=== PATIENT | male | born 1955 | race Caucasian/White ===

== ENCOUNTER → 2019-09-24 | Outpatient (CLI) | payer MEDICARE, MEDICAID ==
[~2019-09-24] MED LIST: AMARYL4 MG PO; CEPHALEXIN500 M1 PO; COREG12.5 MG PO; DIFLUCAN 100MG100 MG PO; FIORICET 325 MG1 TA1 PO; GLUCOPHAGE1000 MG PO; HCTZ 25MG TAB25 MG PO; HYTRIN 1MG C1 MG/CAP PO; K-TAB10 PO; LANTUS100 U/ML SC; LEVAQUIN 5500 MG/TA1 PO; NAPROSYN500 MG PO; NORCO 325 MG-51 TAB PO; NORCO 325 MG-7.1 TAB PO; NORVASC2.5 MG PO; PERCOCET 325 MG1 TA2 PO; TRULICITY1.5 MG/0.5 SQ; ZESTRIL 10MG10 MG PO; ZESTRIL 20MG TA20 MG PO; ZOCOR 10MG10 MG PO; ZOFRAN ODT4 MG PO
== END ==
LOC: COL.RAD 09:17
DX: Z13.6 Encounter for screening for cardiovascular disorders (principal); F17.200 Nicotine dependence, unspecified, uncomplicated

== ENCOUNTER 2020-08-20 18:27 | Inpatient (IN) | payer MEDICARE, MEDICAID ==
[2020-08-20] VITALS (102 sets, daily range): O2SAT 92–98
[~2020-08-20] VITALS: Ht 177.8 cm; Wt 96.3 kg
[~2020-08-20 18:27] MED LIST changes: -HYTRIN 1MG C1 MG/CAP PO; +HYTRIN 2MG CAPSU2 MG PO
--- NOTE | 2020-08-20 18:50 | NUR ---
Received report from AMEYA Ramirez.
--- NOTE | 2020-08-20 18:56 | NUR ---
Patient arrives to ICU room 8 via EMS stretcher from [facility]. Patient is A&Ox4 and initial vitals are within normal limits. Patient denies any pain or discomfort, but reports feeling short of breath. He arrives on 2L oxygen via nasal cannula. Levophed is infusing to a RIJ triple lumen central line at double concentration (8mg/250mL) at 0.1 mcg/kg/min to the brown port. No other fluids infusing upon arrival. He also has an 18G peripheral line to the RAC and a 16Fr jewell in place. Lungs are clear in the upper lobes and diminished in the bases upon auscultation. Patient's breathing is unlabored, though slightly tachypneic at 24-28 breaths/minute. Breaths are shallow in depth. His right lower extremity is swollen and 1+ edematous, mid-calf and below. The patient has an ulcer to the lateral R foot that measures approximately 2cm by 3cm. The ulcer is oozing yellowish drainage, and is left open to air at this time. The right ankle has yellow blister-like lesions that are intact but also weeping. On the sole of the R foot is a small puncture-like abrasion. Patient's groin and scrotum are red and excoriated. No other skin issues noted. Patient's blood glucose is 41 at 1955 when initially checked after arrival. Dr. James notified, who is at the bedside. Received orders for hypoglycemic protocol and to initiate patient on ADA diet as tolerated. Patient continues to be alert and oriented; a sandwhich box and orange juice are provided. ACHS accuchecks are ordered to begin once blood glucose is stabilized. Dr. James requests to continue levophed drip, titrating for a MAP above 65. He states he does not need any labs drawn until tomorrow morning. Will continue to monitor.
[2020-08-21] VITALS (600 sets, daily range): BP systolic 75–133; BP diastolic 43–109; PULSE 70–86; TEMP 97.2–98.8; O2SAT 74–100
[2020-08-21 05:50] LABS: MEAN CELL VOLUME 87 fl (80.0-100.0); MEAN CORPUSCULAR HGB CONC 33 g/dl (33.0-37.0); MEAN PLATELET VOLUME 11.3 fl (7.4-10.4); PLATELET COUNT 249 K/mm3 (130-400); RED BLOOD COUNT 3.08 M/mm3 (4.20-5.60)
[2020-08-21 05:53] LABS: HEMATOCRIT 26.8 % (42.0-52.0); HEMOGLOBIN 8.9 g/dl (13.5-18.0); MEAN CORPUSCULAR HEMOGLOBIN 29 pg (27.0-31.0)
[2020-08-21 06:04] LABS: ALBUMIN 2.6 gm/dL (3.5-5.0); BILIRUBIN,TOTAL 2.6 mg/dL (0.0-1.0); CALCIUM 7.2 mg/dL (8.4-10.2); CREATININE, serum 5.07 (0.66-1.25); PHOSPHOROUS 7.1 mg/dL (2.5-4.5); TOTAL PROTEIN 5.9 gm/dL (6.4-8.2)
[2020-08-21 06:24] LABS: BAND 15 % (0-10); LYMPHOCYTE 8 % (20.0-51.0); NEUTROPHILS 74 % (42.0-75.2); PLATELET ESTIMATE NORMAL (NORMAL)
[2020-08-21 06:25] LABS: ANISOCYTOSIS 1+; HYPOCHROMIA 1+
--- NOTE | 2020-08-21 07:30 | NUR ---
Report provided to AMEYA Murphy. Patient is currently sitting up on the side of the bed with breakfast tray. Bed is in the lowest position; all alarms are on. Call light is within reach. No further needs noted at this time.
[2020-08-21] MEDS ORDERED: ASPIRIN E.C. 8181 MG PO (08:25)
[2020-08-21] MEDS ORDERED: CENTRUM SILVER1 TA2 PO (08:25)
[2020-08-21] MEDS ORDERED: COLACE 100100 MG/CAP PO (08:26)
[2020-08-21] MEDS ORDERED: MASON NATURAL2000 IU PO (08:27)
[2020-08-21] MEDS ORDERED: HCTZ12.5TAB PO (08:28)
[2020-08-21] MEDS ORDERED: MIRALAX PA17 GM/Dose PO (08:29)
[2020-08-21] MEDS ORDERED: CRESTOR20 MG PO (08:30)
[2020-08-21] MEDS ORDERED: TRESIBA FL100 UNIT/1 SQ (08:31)
[2020-08-21] MEDS ORDERED: STOOL SOFTENER240 M1 PO (08:35)
--- NOTE | 2020-08-21 09:01 | NUR ---
Initial visit; Patient thanked Media Relations Coordinator for looking in on him and offering God's blessings.
--- NOTE | 2020-08-21 09:56 | NUR ---
MARY met with the patient to discuss discharge plan. The patient lives in [place] with his girlfriend, Yazmin (ph#[phone]). He reports needing some assistance with ADLs and has a cane and walker. He states that Yazmin has been helping him with bathing and using the restroom. The patient's PCP is Dr. Lashae Rader and he receives his medications from [facility]. He reports no difficulties obtaining his meds. The patient does not have a DPOA-HC completed, but he was interested in obtaining a form for DPOA-HC. MARY provided. The patient states that he is not , does not have any children. His mother is alive, but he states that she has dementia and lives at [facility]. He states that he has two living siblings: Sharyn (ph#[phone]) and Michael (ph#[phone]). The patient states that he is unsure about how he feels about returning home upon discharge at this time. He would like to see how he does with therapy. PT/OT have been ordered. Awaiting their evals. MARY then attempted to contact the patient's sister, Sharyn. MARY left her a voicemail. MARY then contacted the patient's brother, Michael, and reviewed the above information. Michael verbalized understanding. He had no concerns for SW at this time. MARY also contacted the patient's girlfriend, Yazmin. Yazmin states that she does not feel good right now and asked to talk later. SW to continue to follow.
--- NOTE | 2020-08-21 10:45 | NUR ---
Called to notify him of potassium level being 3.0. He gave verbal over phone order to give 10meq potassium chloride, IV, over an hour, times three. So to give a total of 30meq of potassium chloride. Will recheck level after infusions.
--- NOTE | 2020-08-21 13:05 | NUR ---
Called to give him an update on patient. He said to d/c D5 IVF, and to give 1 liter of NS over 3 hours to try and turn off levophed.
--- NOTE | 2020-08-21 19:40 | NUR ---
report received from AMEYA Murphy.
[2020-08-22] VITALS (358 sets, daily range): BP systolic 100–126; BP diastolic 52–60; PULSE 67–74; TEMP 97.6–98.6; O2SAT 68–100
--- NOTE | 2020-08-22 05:18 | NUR ---
PT ALERT AND ORIENTEDX4, DENIES ANY PAIN UNLESS RIGHT FOOT BEING MOVED AND SCROTUM BEING WIPED DOWN WHEN PROVIDING ROSALINE CARE. PT HAD NO BM EPISODE HENCE STOOL STILL PENDING FOR COLLECTION. PT HAS QUINTANA WELL, YELLOW TO MABER IN COLOR, CLEAR TO CLOUDY. PT IS ABLE TO TURN SELF IN BED SIDE-SIDE BUT UNABLE TO GET UP FROM BED HE IS VERY WEAK. ULCERS ON FOORT NOTED, PT HAD A BED BATH LAST NIGHT.
[2020-08-22 05:32] LABS: MEAN CELL VOLUME 86 fl (80.0-100.0); MEAN CORPUSCULAR HGB CONC 33 g/dl (33.0-37.0); MEAN PLATELET VOLUME 11.8 fl (7.4-10.4); PLATELET COUNT 221 K/mm3 (130-400); RED BLOOD COUNT 3.14 M/mm3 (4.20-5.60); REDCELL DISTRIBUTION WIDTH-CV 15.2 % (11.5-14.5)
[2020-08-22 05:35] LABS: HEMATOCRIT 27.1 % (42.0-52.0); HEMOGLOBIN 8.8 g/dl (13.5-18.0); MEAN CORPUSCULAR HEMOGLOBIN 28 pg (27.0-31.0)
[2020-08-22 05:37] LABS: INR 1.6 (0.8-3.0); PROTHROMBIN TIME 18.3 SECONDS (9.7-12.8)
[2020-08-22 05:43] LABS: ALBUMIN 2.5 gm/dL (3.5-5.0); BILIRUBIN,TOTAL 1.7 mg/dL (0.0-1.0); CALCIUM 7.7 mg/dL (8.4-10.2); CREATININE, serum 5.03 (0.66-1.25); POTASSIUM 3.5 mmol/L (3.4-5.0)
[2020-08-22 06:02] LABS: BAND 5 % (0-10); EOSINOPHIL 1 % (0-4); LYMPHOCYTE 12 % (20.0-51.0); NEUTROPHILS 78 % (42.0-75.2); PLATELET ESTIMATE NORMAL (NORMAL)
[2020-08-22 06:03] LABS: ANISOCYTOSIS 1+; HYPOCHROMIA 1+
--- NOTE | 2020-08-22 07:24 | NUR ---
REPORT GIVEN TO AMEYA QUIROZ.
--- NOTE | 2020-08-22 13:49 | NUR ---
Gave report to AMEYA Miles. Patient will be transferring to room 318 on medical floor.
--- NOTE | 2020-08-22 14:37 | NUR ---
Pt arrives to medical unit rm 318 from ICU via bed, awake and alert x 4. Pt reports discomfort around catheter d/t movement from one bed to the other, denies other needs at this time. IVF's infusing per orders through right IJ central line without s/s of complications. Call light in reach.
--- NOTE | 2020-08-22 20:30 | NUR ---
Initial shift assessment done-Tele on, denies need for pain meds- did agree to eat a snack tonight of some grahmn crackers and apple sauce, NPO after MN for heart cath, IV fluids of 1/2 NS w/20meq KCL AT 50CC/HR, mepilex on the 2 right lateral foot wounds. Vasques with cloudy yellow urine.
[2020-08-23] VITALS (11 sets, daily range): BP systolic 117–146; BP diastolic 59–85; PULSE 70–79; TEMP 97.6–98.3
--- NOTE | 2020-08-23 05:45 | NUR ---
Blood sugar 48, pt not symptomatic-, was given 1/2 amp D50 IV as per order -did rest fair during the night- was given Tylenol x1 for scrotal pain,, did redress his right foot lower leg wounds-was drainage from the mepilex- so redressed with fluffs and wrappe with kerlix
--- NOTE | 2020-08-23 06:15 | NUR ---
Repeat blood sugar 85- pt resting
[2020-08-23 07:16] LABS: MEAN CELL VOLUME 86 fl (80.0-100.0); MEAN CORPUSCULAR HGB CONC 33 g/dl (33.0-37.0); MEAN PLATELET VOLUME 11.7 fl (7.4-10.4); PLATELET COUNT 197 K/mm3 (130-400); RED BLOOD COUNT 3.14 M/mm3 (4.20-5.60); REDCELL DISTRIBUTION WIDTH-CV 15.2 % (11.5-14.5)
[2020-08-23 07:18] LABS: ALBUMIN 2.6 gm/dL (3.5-5.0); BILIRUBIN,TOTAL 1.5 mg/dL (0.0-1.0); CALCIUM 8.1 mg/dL (8.4-10.2); CREATININE, serum 4.86 (0.66-1.25); HEMATOCRIT 27.1 % (42.0-52.0); HEMOGLOBIN 8.9 g/dl (13.5-18.0); MEAN CORPUSCULAR HEMOGLOBIN 28 pg (27.0-31.0); POTASSIUM 3.6 mmol/L (3.4-5.0); TOTAL PROTEIN 6.4 gm/dL (6.4-8.2)
[2020-08-23 07:30] LABS: TROPONIN-I 0.228 ng/mL (0.000-0.035)
[2020-08-23 07:34] LABS: INR 1.6 (0.8-3.0); PROTHROMBIN TIME 18.5 SECONDS (9.7-12.8)
[2020-08-23 07:36] LABS: PARTIAL THROMBOPLASTIN TIME 32.3 SECONDS (26.0-37.0)
[2020-08-23 08:05] LABS: BAND 14 % (0-10); EOSINOPHIL 1 % (0-4); LYMPHOCYTE 8 % (20.0-51.0); METAMYELOCYTE 3 % (0-0); NEUTROPHILS 66 % (42.0-75.2); PLATELET ESTIMATE NORMAL (NORMAL)
--- NOTE | 2020-08-23 14:47 | NUR ---
Inspector Final Assembly Mechanical followed up with patient to discuss post acute rehab options. Patient's first preference is [facility] and [facility] MARY contacted Nanda, [facility] Director to give referral. MARY also contacted Jeanette at [facility] and faxed referral. MARY will continue to follow as patient is having BKA today.
--- NOTE | 2020-08-23 15:29 | NUR ---
Vancomycin Follow-up Pharmacy Note Current regimen: DOSED BY LEVEL Vancomycin trough: 14.6 Adjustments: VANCOMYCIN 1.25G X 1, RANDOM TROUGH 08/24
--- NOTE | 2020-08-23 16:23 | NUR ---
Patient alert and oriented. complain of pain on his right leg and back. the heart cath scheduled for this am was cancelled. 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
--- NOTE | 2020-08-23 16:25 | NUR ---
patient had 1/2 ns 20meq running at 50ml/hr before procedure. in surgey at this time.
--- NOTE | 2020-08-23 16:26 | NUR ---
Report given to AMEYA Maria in surgical.
--- NOTE | 2020-08-23 19:00 | NUR ---
Patient blood sugar at 62 post op, patient asymptomatic, was given apple juice and meal tray on its way. Hemovac with scant bloody drainage present. RLE with daniela wrap in brace. Denies pain at this time. Post op fluids infusing per order to right IJ. Reported off to professor of chemical engineering.
--- NOTE | 2020-08-23 20:15 | NUR ---
Pt. sitting up in bed at this time. Pt. is A&OX3, assessment complete. Central line to Rt. IJ, Abx, runing at this time. Pt. reports pain at a 5 on pain sclae to the rt. BKA, Pain meds given per orders. Dressing to Rt. BKA CDI. Pt. also has a brace to the RLE. Pt. denies further needs, call light within reach.
[2020-08-24 00:12] VITALS: BP 134/67; PULSE 71; TEMP 97.5
[2020-08-24 03:52] VITALS: BP 133/72; PULSE 73; TEMP 97.5
[2020-08-24 06:48] LABS: MEAN CELL VOLUME 87 fl (80.0-100.0); MEAN CORPUSCULAR HGB CONC 33 g/dl (33.0-37.0); MEAN PLATELET VOLUME 11.6 fl (7.4-10.4); PLATELET COUNT 186 K/mm3 (130-400); RED BLOOD COUNT 3.08 M/mm3 (4.20-5.60); REDCELL DISTRIBUTION WIDTH-CV 15.1 % (11.5-14.5)
[2020-08-24 06:56] LABS: HEMATOCRIT 26.8 % (42.0-52.0); HEMOGLOBIN 8.7 g/dl (13.5-18.0); MEAN CORPUSCULAR HEMOGLOBIN 28 pg (27.0-31.0)
[2020-08-24 06:58] LABS: ALBUMIN 2.6 gm/dL (3.5-5.0); C-REACTIVE PROTEIN 6.3 mg/dL (0.0-0.9); CALCIUM 7.8 mg/dL (8.4-10.2); CREATININE, serum 4.13 (0.66-1.25); POTASSIUM 4.1 mmol/L (3.4-5.0); TOTAL PROTEIN 6.4 gm/dL (6.4-8.2)
[2020-08-24 07:12] LABS: BAND 4 % (0-10); HYPOCHROMIA 1+; LYMPHOCYTE 6 % (20.0-51.0); METAMYELOCYTE 1 % (0-0); MYELOCYTE 1 % (0-0); NEUTROPHILS 85 % (42.0-75.2); PLATELET ESTIMATE NORMAL (NORMAL)
[2020-08-24 07:13] VITALS: BP 148/70; PULSE 81; TEMP 97.7
[2020-08-24 07:13] LABS: ANISOCYTOSIS 1+
--- NOTE | 2020-08-24 08:24 | NUR ---
Patient in bed eating breakfast. Alert and oriented x 3. Assessment complete. Denies pain at this time. RLE with acewrap is CDI; Brace in place. Hemovac with scant serous drainage. Antibiotics infusing per orders. Patient denies further needs at this time.
[2020-08-24 11:29] VITALS: BP 132/63; PULSE 79; TEMP 97.6
--- NOTE | 2020-08-24 11:47 | NUR ---
First visit from the box attacher. No needs right now.
--- NOTE | 2020-08-24 13:00 | NUR ---
Family at bedside. Patient continued to deny pain. Denies further needs at this time.
--- NOTE | 2020-08-24 15:05 | NUR ---
Ciara, at [facility], reports that they are unable to accept the patient.
[2020-08-24 15:43] VITALS: BP 139/61; PULSE 75; TEMP 98
--- NOTE | 2020-08-24 16:36 | NUR ---
Left for Dr. James for insulin orders.
--- NOTE | 2020-08-24 18:54 | NUR ---
Patient has done well throughout the day. Continues to deny pain throughout the day. RLE with brace. Denies further needs at this time. Will report of to soaking pit operator.
--- NOTE | 2020-08-24 19:50 | NUR ---
Pt. laying in bed at this time. Pt. is A&OX3, assessment complete. TLC to rt. IJ patent. Pt. denies pain or other needs. Call light within reach.
[2020-08-24 21:29] VITALS: BP 142/61; PULSE 74; TEMP 98.7
[2020-08-25 00:07] VITALS: BP 147/69; PULSE 74; TEMP 97.4
[2020-08-25 03:58] VITALS: BP 151/67; PULSE 74; TEMP 98
[2020-08-25 07:30] VITALS: BP 160/65; PULSE 74; TEMP 98.5
[2020-08-25 08:23] LABS: ALBUMIN 2.7 gm/dL (3.5-5.0); BILIRUBIN,TOTAL 0.9 mg/dL (0.0-1.0); CALCIUM 8.2 mg/dL (8.4-10.2); CREATININE, serum 3.26 (0.66-1.25); TOTAL PROTEIN 6.8 gm/dL (6.4-8.2)
[2020-08-25 08:28] LABS: MEAN CELL VOLUME 88 fl (80.0-100.0); MEAN CORPUSCULAR HGB CONC 32 g/dl (33.0-37.0); MEAN PLATELET VOLUME 11.5 fl (7.4-10.4); PLATELET COUNT 206 K/mm3 (130-400); RED BLOOD COUNT 3.24 M/mm3 (4.20-5.60); REDCELL DISTRIBUTION WIDTH-CV 15.1 % (11.5-14.5)
[2020-08-25 08:36] LABS: HEMATOCRIT 28.5 % (42.0-52.0); HEMOGLOBIN 9.1 g/dl (13.5-18.0); MEAN CORPUSCULAR HEMOGLOBIN 28 pg (27.0-31.0)
[2020-08-25 08:38] LABS: C-REACTIVE PROTEIN 5.6 mg/dL (0.0-0.9)
[2020-08-25 10:10] LABS: BAND 6 % (0-10); EOSINOPHIL 2 % (0-4); LYMPHOCYTE 9 % (20.0-51.0); METAMYELOCYTE 2 % (0-0); NEUTROPHILS 78 % (42.0-75.2); NUCLEATED RED BLOOD CELL 1 (0-6)
[2020-08-25 10:20] LABS: ANISOCYTOSIS 1+; HYPOCHROMIA 2+; PLATELET ESTIMATE NORMAL (NORMAL)
[2020-08-25 11:37] VITALS: BP 159/75; PULSE 80; TEMP 98.2
--- NOTE | 2020-08-25 12:50 | NUR ---
Patient alert and oriented, answers questions appropriately. See assessment. RLE with dressing CDI. Post op exercises reviewed with patient. No c/o at this time.
[2020-08-25 15:26] VITALS: BP 142/55; PULSE 81; TEMP 97.6
--- NOTE | 2020-08-25 16:59 | NUR ---
On Site Manager follow up with the patient. SW discussed sending another referral since Michael Arzola declined. He was agreeable to sending referral to [facility]. Referral sent.
[2020-08-25] MEDS ORDERED: TRULICITY1.5 MG/0.5 SQ (18:10)
[2020-08-25] MEDS ORDERED: LOFIBRA134 MG PO (18:10)
[2020-08-25] MEDS ORDERED: [UNRECOGNIZED DRUG - OTHER] PO (18:15)
[2020-08-25 19:25] VITALS: BP 160/63; PULSE 67; TEMP 98.3
--- NOTE | 2020-08-25 21:00 | NUR ---
Pt is currently lying in bed. Pt had some complaints of pain and pt was given pain medication at this time. Pt was also helpt to the side of the bed to dangle. Pt stated that he was to weak to try to get up and out of bed. Pt was assisted with the bedpan . Pt was cleaned and barrier cream was applied at this time to his testicles becasue they were very red and the skin appered to have some redness. Pt has his call light within reach.
[2020-08-26] VITALS (8 sets, daily range): BP systolic 152–170; BP diastolic 62–89; PULSE 77–96; TEMP 97.6–98.9
--- NOTE | 2020-08-26 06:04 | NUR ---
Pt currenty resting in bed. Pt has his call light within reach.
--- NOTE | 2020-08-26 08:37 | NUR ---
PATIENT SHIFT ASSESSMENT COMPLETED. 2+ PITTING EDEMA TO LEFT FOOR NOTED. SWELLING TO RIGHT HAND. KNEE IMMOBILIZER IN PLACE TO RLE. HEMOVAC DRAIN IN PLACE WITH SCANT AMOUNT OF BLOODY DRAINAGE PRESENT IN TUBING. CALL LIGHT WITHIN REACH. PATIENT DENIES ANY OTHER NEEDS AT THIS TIME.
--- NOTE | 2020-08-26 08:41 | NUR ---
PATIENT REPORTING PAIN IN HIS RLE. PATIENT GIVEN PRN PO ROXICODONE AT THIS TIME FOR PAIN. RLE ELEVATED ON TWO PILLOWS. CALL LIGHT WITHIN REACH. NO OTHER NEEDS AT THIS TIME.
[2020-08-26 12:36] LABS: CALCIUM 8.3 mg/dL (8.4-10.2); CREATININE, serum 2.41 (0.66-1.25); POTASSIUM 3.8 mmol/L (3.4-5.0)
[2020-08-26 12:45] LABS: MEAN CELL VOLUME 87 fl (80.0-100.0); MEAN CORPUSCULAR HGB CONC 32 g/dl (33.0-37.0); MEAN PLATELET VOLUME 11.4 fl (7.4-10.4); PLATELET COUNT 197 K/mm3 (130-400); RED BLOOD COUNT 2.95 M/mm3 (4.20-5.60); REDCELL DISTRIBUTION WIDTH-CV 14.9 % (11.5-14.5)
[2020-08-26 12:48] LABS: HEMATOCRIT 25.7 % (42.0-52.0); HEMOGLOBIN 8.3 g/dl (13.5-18.0); MEAN CORPUSCULAR HEMOGLOBIN 28 pg (27.0-31.0)
--- NOTE | 2020-08-26 12:55 | NUR ---
CALLED AND NOTIFIED OF CRITICAL WBC RESULT OF 20.3. TORB TO PLACE ORDER TO NOT CALL CRITICAL WBC RESULTS ON PATIENT FROM TO THIS NURSE.
--- NOTE | 2020-08-26 13:14 | NUR ---
PATIENTS BP ELEVATED AT 166/89, PRN APRESOLINE GIVEN PER ORDERS. WILL CONTINUE TO MONITOR.
[2020-08-26 14:28] LABS: BAND 5 % (0-10); LYMPHOCYTE 8 % (20.0-51.0); NEUTROPHILS 85 % (42.0-75.2); PLATELET ESTIMATE NORMAL (NORMAL)
--- NOTE | 2020-08-26 16:37 | NUR ---
WASTEWATER TREATMENT PLANT CHEMIST REPORTED PATIENT BLOOD PRESSURE IS ELEVATED AT 170/62. TOO SOON FOR ANOTHER DOSE OF PRN APRESOLINE. PATIENT GIVEN PRN PAIN MEDICATION AT THIS TIME FOR PAIN RATED A 6-7/10 IN THE RIGHT LOWER EXTREMITY. WILL RE-CHECK BP. RLE CURRENTLY ELEVATED ON PILLOWS. CALL LIGHT WITHIN REACH.
--- NOTE | 2020-08-26 17:30 | NUR ---
PATIENTS RIGHT KNEE HEMOVAC DRAIN DISCONTINUED PER ORTHO ORDERS. MODERATE AMOUNT OF BLOODY DRAINAGE PRESENT TO THE MEDIAL ASPECT OF RIGHT BKA STUMP ON ABD PADS. SMALL AMOUNTS OF BLOODY DRAINAGE THROUGH SOFT ROLL AND KERLIX. HAFSA INTACT WITH EDGES WELL APPROXIMATED. PATIENT TOLERATED DRAIN REMOVAL WELL. RIGHT BKA SITE RE-DRESSED WITH TWO ABD PADS, SOFT ROLL,KERLIX, AND PARKER WRAP X2. IMMOBLIZER REAPPLIED. RIGHT IJ CENTRAL LINE DRESSING CHANGED VIA STERILE TECHNIQUE. PATIENT TOLERATED WELL. PATIENT ASSISTED UP TO THE SIDE OF THE BED FOR DINNER, THEN BACK TO BED. PATIENTS RLE ELEVATED ON TWO PILLOWS. QUINTANA CATHETER TO DEPENDENT DRAINAGE. ZOSYN INFUSING TO RIGHT IJ. CALL LIGHT WITHIN REACH. PATIENT DENIES ANY OTHER NEEDS AT THIS TIME.
--- NOTE | 2020-08-26 18:25 | NUR ---
PATIENTS BLOOD PRESSURE STILL ELEVATED AFTER PAIN MEDICATION ADMINISTRATION. PATIENT GIVEN PRN PO DOSE OF APRESOLINE AT THIS TIME. WILL REPORT OFF TO ONCOMING NURSE.
--- NOTE | 2020-08-26 21:00 | NUR ---
PT RESTING IN BED. RESTLESS. YELLS OUT AT TIME D/T PHANTOM PAIN. PT DENIES NEED FOR PAIN MED. RT BKA ELEVATED ON PILLOWS. OCCLUSIVE DRSG CDI. REPORTED DRAIN DC'D TODAY. CAPS CHANGED X3 INTERNAL IJ. QUINTANA DRAIANGE SYSTEM CHANGED D/T TUBING AND COLLECTION CONTAINER HAZY AND BUILT UP SEDIMENT. URINE DRAINING CLEAR YELLOW URINE AT THIS TIME. HOB ELEVATED. CALL LIGHT IN REACH. PT ALITTLE MENTALLY FOGGY. BUT ANSWERS QUESTION CORRECTLY.
--- NOTE | 2020-08-27 03:30 | NUR ---
PT RESTING IN BED BUT RESTLESS. GOWN OFF. PHONE ON AND DOWN BY LEGS. CALL LIGHT ON FLOOR. PT ORIENTED BUT HAS MENTAL CLOUDINESS. MOANS OR YELLS OUT. VERY NON SPECIFIC ANSWERS TO DIRECT QUESTIONS. REPOSITIONED ON LT SIDE. GAVE PERICARE. SM LOOSE DRIED BM NOTED. SCROTUM STILL SWOLLEN. AREA CLEANED AND BARRIER OINTMENT APPLIED. GAVE NECK RUB D/T STIFF NECK. DIFFICULTY TURNING HEAD FROM SIDE TO SIDE. WARM PACK PLACED TO NECK. VSS. NO NEED FOR APRESOLINE. QUINTANA DRAINING CLEAR YELLOW URINE IN SUFFICIENT QUANITIES. CLL IGHT IN REACH. BED ALARM SET.
[2020-08-27 03:56] VITALS: BP 159/80; PULSE 88; TEMP 99
[2020-08-27 06:50] LABS: MEAN CELL VOLUME 89 fl (80.0-100.0); MEAN CORPUSCULAR HGB CONC 32 g/dl (33.0-37.0); PLATELET COUNT 215 K/mm3 (130-400); RED BLOOD COUNT 2.94 M/mm3 (4.20-5.60); REDCELL DISTRIBUTION WIDTH-CV 15.1 % (11.5-14.5)
--- NOTE | 2020-08-27 06:54 | NUR ---
PT SLEEPING NOW. NO RESP DISTRESS. SHIFT REPORT GIVEN TO THA HOU
[2020-08-27 06:58] LABS: HEMATOCRIT 26.1 % (42.0-52.0); HEMOGLOBIN 8.3 g/dl (13.5-18.0); MEAN CORPUSCULAR HEMOGLOBIN 28 pg (27.0-31.0)
[2020-08-27 07:12] LABS: CALCIUM 8.3 mg/dL (8.4-10.2); CREATININE, serum 2.18 (0.66-1.25); POTASSIUM 3.7 mmol/L (3.4-5.0)
[2020-08-27 07:52] VITALS: BP 186/76; PULSE 77; TEMP 97.3
[2020-08-27 08:17] LABS: BAND 7 % (0-10); LYMPHOCYTE 11 % (20.0-51.0); METAMYELOCYTE 1 % (0-0); NEUTROPHILS 78 % (42.0-75.2)
[2020-08-27 08:23] LABS: ANISOCYTOSIS 1+; HYPOCHROMIA 1+; PLATELET ESTIMATE NORMAL (NORMAL)
--- NOTE | 2020-08-27 10:00 | NUR ---
Patient resting in bed. Therapy worked with patient, he did have a loose stool and this nurse assisted with hygiene. Patient very flat affect. Denies needs or wants. Will monitor.
--- NOTE | 2020-08-27 10:33 | NUR ---
Vancomycin Follow-up Pharmacy Note: Patient has been on vancomycin since 08/20/20, with doses based on random levels due to initial creatinine of 5.07. Creatinine has improved to 2.18 today so will begin a scheduled regimen. Suggested regimen: 1.25 Q24H with trough prior to the dose on 08/30/20. Pharmacy will continue to follow.
[2020-08-27 11:08] VITALS: BP 159/81; PULSE 87; TEMP 98.4
--- NOTE | 2020-08-27 14:35 | NUR ---
SW sent update notes to via Nany Moser from 08/24/2020-08/27/2020.
--- NOTE | 2020-08-27 16:19 | NUR ---
Patient resting in bed. Visiting on phone with his siblings. His only complaint of pain is from jewell removal. Denies pain in his leg. Iv antibioitcs as order via central line. Will monitor.
[2020-08-27 17:05] VITALS: BP 170/75; PULSE 95; TEMP 97.9
--- NOTE | 2020-08-27 19:26 | NUR ---
Patient resting in bed. He sat at edge of bed for dinner. He was unsuccessful in standing two assist. He was going to try and use urinal. He does not yet feel like he had a full bladder. Patient tolerated dinner. No other needs. Noelle to resume cares
--- NOTE | 2020-08-27 20:00 | NUR ---
Report received, assumed care for maintenance mechanic 2nd shift. Assessment complete. A&Ox3. VS stable. Denies shortness of breath/nausea. Rating pain 6/10 to back/neck/right lower extremity-described as intermittent throbbing-oxycodone given per dr order. Dressing to right lower extremity XIT-HRR-hkrzb white/daniela. Immobolizer on. Fresh ice applied. SCD to left ext. Right IJ flushes without difficulty. Has been incontinent of urine-ralph care completed-barrier cream applied to scrotum. Plan of care discussed for this shift to include HS meds/Calling for questions/concerns. Call light in reach. Will monitor.
[2020-08-27 20:18] VITALS: BP 148/71; PULSE 88; TEMP 97.9
[2020-08-28] VITALS (7 sets, daily range): BP systolic 129–163; BP diastolic 53–76; PULSE 75–94; TEMP 97.4–98.1
--- NOTE | 2020-08-28 00:30 | NUR ---
Sitting up in bed. Incontinent of urine-care provided. Denies pain/nausea/shortness of breath. VS stable. Denies needs. Call light in reach. Will monitor.
--- NOTE | 2020-08-28 03:30 | NUR ---
C/O pain to neck/right lower extremity. Oxycodone given per dr order. Will continue to monitor.
[2020-08-28 06:52] LABS: MEAN CELL VOLUME 89 fl (80.0-100.0); MEAN CORPUSCULAR HGB CONC 31 g/dl (33.0-37.0); PLATELET COUNT 258 K/mm3 (130-400); RED BLOOD COUNT 2.74 M/mm3 (4.20-5.60); REDCELL DISTRIBUTION WIDTH-CV 15.2 % (11.5-14.5)
[2020-08-28 07:02] LABS: HEMATOCRIT 24.4 % (42.0-52.0); HEMOGLOBIN 7.6 g/dl (13.5-18.0); MEAN CORPUSCULAR HEMOGLOBIN 28 pg (27.0-31.0)
[2020-08-28 07:06] LABS: CALCIUM 8.1 mg/dL (8.4-10.2); CREATININE, serum 2.53 (0.66-1.25); POTASSIUM 3.6 mmol/L (3.4-5.0)
[2020-08-28 08:01] LABS: BAND 10 % (0-10); EOSINOPHIL 3 % (0-4); LYMPHOCYTE 14 % (20.0-51.0); NEUTROPHILS 73 % (42.0-75.2); PLATELET ESTIMATE NORMAL (NORMAL)
[2020-08-28 08:03] LABS: PATHOLOGY DIFF REVIEW OK
--- NOTE | 2020-08-28 18:30 | NUR ---
Patient has been doing well today. Minimal complaints of pain. No complaints of nausea. He has been moving around in the bed with minimal assist today. Oxycodone given for pain as requested and as ordered. IV antibiotics given as ordered. No other changes at this time. Call light within reach. Patient also sat up in the wheel chair most the afternoon.
--- NOTE | 2020-08-28 21:00 | NUR ---
Pt. sitting up in bed at this time. Pt. is A&OX3, assessment complete. TLC to rt. IJ patent. Pt. reports pain at a 6 on pain scale, gave pain meds per orders. Pt. denies further needs, call light within reach.
[2020-08-29 04:39] VITALS: BP 143/56; PULSE 89; TEMP 97.4
[2020-08-29 07:19] VITALS: BP 160/70; PULSE 94
[2020-08-29 07:40] LABS: MEAN CELL VOLUME 90 fl (80.0-100.0); MEAN CORPUSCULAR HGB CONC 31 g/dl (33.0-37.0); MEAN PLATELET VOLUME 10.7 fl (7.4-10.4); PLATELET COUNT 309 K/mm3 (130-400); RED BLOOD COUNT 2.69 M/mm3 (4.20-5.60); REDCELL DISTRIBUTION WIDTH-CV 15.3 % (11.5-14.5)
[2020-08-29 07:45] LABS: HEMATOCRIT 24.2 % (42.0-52.0); HEMOGLOBIN 7.5 g/dl (13.5-18.0); MEAN CORPUSCULAR HEMOGLOBIN 28 pg (27.0-31.0)
[2020-08-29 07:57] LABS: CALCIUM 8.2 mg/dL (8.4-10.2); CREATININE, serum 2.2 (0.66-1.25)
[2020-08-29 08:16] LABS: BAND 2 % (0-10); EOSINOPHIL 5 % (0-4); LYMPHOCYTE 12 % (20.0-51.0); METAMYELOCYTE 2 % (0-0); NEUTROPHILS 73 % (42.0-75.2); PLATELET ESTIMATE NORMAL (NORMAL)
[2020-08-29 08:19] LABS: HYPOCHROMIA 2+
[2020-08-29 08:20] LABS: ANISOCYTOSIS 1+
[2020-08-29 11:33] VITALS: BP 160/70; PULSE 95; TEMP 98.3
--- NOTE | 2020-08-29 15:18 | NUR ---
Content Strategist faxed updates to Ayo at [facility]. He reports he will be able to take the patient at discharge. [facility] is following along with the patient as well and will likely be able to accept.
[2020-08-29 15:35] VITALS: BP 132/55; PULSE 91; TEMP 97.7
--- NOTE | 2020-08-29 18:00 | NUR ---
Patient did well today. Denies nausea. Pain seemed better controlled today. Patient does not transfer very well. He is not able to stand on his left leg to transfer to the commode or the wheel chair. We tried to use the slide board but he was not able to do that either. No other changes at this time. Call light within reach.
[2020-08-29 19:55] VITALS: BP 136/57; PULSE 79; TEMP 98
--- NOTE | 2020-08-29 21:15 | NUR ---
Pt. sitting up in bed at this time. Pt. is A&OX3, assessment complete. TLC to RT. IJ patent. Dressing to COLLEENKA CDI. Pt. has immobilizer on. Pt. denies further needs, call light within reach.
[2020-08-29 23:19] VITALS: BP 144/67; PULSE 91; TEMP 98.1
[2020-08-30 04:52] VITALS: BP 132/66; PULSE 90; TEMP 97.4
[2020-08-30 07:04] LABS: BASO # 0.1 (0.0-0.2); BASO % 0.6 % (0.0-2.0); EOS # 0.2 (0.0-0.7); EOS % 2.4 % (0-4.0); GRAN % 74.1 % (42.2-75.2); LYMPH # 1.3 (1.2-3.4); LYMPH % 16.3 % (20.0-51.0); MEAN CELL VOLUME 91 fl (80.0-100.0); MEAN CORPUSCULAR HGB CONC 31 g/dl (33.0-37.0); MEAN PLATELET VOLUME 10.6 fl (7.4-10.4); MONO # 0.4 (0.1-0.6); MONO % 5.4 % (1.7-9.3); PLATELET COUNT 325 K/mm3 (130-400); RED BLOOD COUNT 2.52 M/mm3 (4.20-5.60); REDCELL DISTRIBUTION WIDTH-CV 15.6 % (11.5-14.5)
[2020-08-30 07:12] LABS: HEMATOCRIT 22.9 % (42.0-52.0); MEAN CORPUSCULAR HEMOGLOBIN 28 pg (27.0-31.0)
[2020-08-30 07:20] LABS: C-REACTIVE PROTEIN 6.4 mg/dL (0.0-0.9); CALCIUM 8.3 mg/dL (8.4-10.2); CREATININE, serum 2.15 (0.66-1.25); POTASSIUM 3.5 mmol/L (3.4-5.0)
[2020-08-30 09:00] VITALS: BP 162/72; PULSE 101; TEMP 97.7
--- NOTE | 2020-08-30 10:15 | NUR ---
Patient alert and oriented, answers questions appropriately. See assessment. RLE with dressing CDI. No numbness or tingling to RLE. Activity reviewed with patient. No c/o at this time.
[2020-08-30 11:55] VITALS: BP 132/61; PULSE 84; TEMP 98
--- NOTE | 2020-08-30 16:29 | NUR ---
SW faxed updates to [facility].
[2020-08-30 17:05] VITALS: BP 159/74; PULSE 84; TEMP 97.9
[2020-08-30 18:26] VITALS: BP 162/67; PULSE 99; TEMP 98.1
--- NOTE | 2020-08-30 21:45 | NUR ---
Pt. sitting up in bed at this time. Pt. is A&OX3, assessment complete. TLC to rt. IJ patent. Dressing to rt. BKA CDI. Immobilizer on. Pt. reports pain at a 5 on pain scale, gave pain meds per orders. Pt. denies further needs, call light within reach.
[2020-08-30 23:53] VITALS: BP 160/76; PULSE 95; TEMP 98
[2020-08-31 05:42] VITALS: BP 153/64; PULSE 89; TEMP 97.8
[2020-08-31 07:42] LABS: BASO # 0.1 (0.0-0.2); BASO % 0.6 % (0.0-2.0); EOS # 0.2 (0.0-0.7); EOS % 1.6 % (0-4.0); GRAN # 8.5 (1.4-6.5); GRAN % 78.4 % (42.2-75.2); LYMPH # 1.4 (1.2-3.4); LYMPH % 13.3 % (20.0-51.0); MEAN CELL VOLUME 91 fl (80.0-100.0); MEAN CORPUSCULAR HGB CONC 31 g/dl (33.0-37.0); MEAN PLATELET VOLUME 10.3 fl (7.4-10.4); MONO # 0.6 (0.1-0.6); MONO % 5.4 % (1.7-9.3); PLATELET COUNT 401 K/mm3 (130-400); RED BLOOD COUNT 2.65 M/mm3 (4.20-5.60); REDCELL DISTRIBUTION WIDTH-CV 15.9 % (11.5-14.5)
[2020-08-31 07:47] LABS: HEMOGLOBIN 7.4 g/dl (13.5-18.0); MEAN CORPUSCULAR HEMOGLOBIN 28 pg (27.0-31.0)
[2020-08-31 07:51] LABS: CALCIUM 8.6 mg/dL (8.4-10.2); CREATININE, serum 2.13 (0.66-1.25); POTASSIUM 3.8 mmol/L (3.4-5.0)
--- NOTE | 2020-08-31 08:00 | NUR ---
Patient in bed resting. Alert and oriented x 3. Assessment complete. Denies pain at this time. Patient up to BSC with x 2 assist. Right IJ without complications. RLE with immobilizer in place, Acewrap is CDI. Denies further needs at this time.
[2020-08-31 08:47] VITALS: BP 132/54; PULSE 98; TEMP 98.2
--- NOTE | 2020-08-31 11:53 | NUR ---
Control Room Tender presented the IM form to the patient. He verbalized understanding and gave SW permission to sign the form. A copy was provided to the patient and the original was placed in the chart.
[2020-08-31 12:36] VITALS: BP 141/69; PULSE 92; TEMP 98.2
[2020-08-31] MEDS ORDERED: APRESOLINE 25MG25 MG PO (13:07)
[2020-08-31] MEDS ORDERED: TYLENOL 500MG500 MG PO (13:08)
[2020-08-31] MEDS ORDERED: ROXICODONE 55 MG/TAB PO (13:08)
[2020-08-31] MEDS ORDERED: NOVLOG SQ (13:09)
[2020-08-31] MEDS ORDERED: LEVEMIR100 U/ML SQ (13:10)
[2020-08-31] MEDS ORDERED: CIPRO 500MG TA500 MG PO (13:12)
[2020-08-31] MEDS ORDERED: DOXYCYCLINE HY100 MG PO (13:13)
--- NOTE | 2020-08-31 16:30 | NUR ---
Patient transfered via wheelchair to [facility].
[2020-08-31 17:03] VITALS: BP 156/78; PULSE 90; TEMP 97.6
--- NOTE | 2020-09-01 09:46 | NUR ---
On 08.31.20 the patient was back and forth on where he wanted to go for post acute rehab, [facility] vs [facility]. Both had accepted. He stated he wanted to go to [facility]. MARY contacted Ayo with [facility] and he could take the patient as discharge. When this MARY was taking the patient's IM copy to his room, Dr. James was talking the patient regarding his choices. [facility] During the conversation the patient decided to go to [facility] instead. The patient discharged to [facility] on 08.31.20. MARY informed Ayo of the above decision and thanked him for looking at the referral. MARY collaborated the above information with the patient's nurse.
== END 2020-08-31 16:30 | DRG 853 ==
LOC: IMCU 18:27 → SURG 19:15 → ICU 19:15 → MEDICAL 19:15 → SURG 08-23 17:14
PROVIDERS: Nurse Practitioner; Orthopaedic Surgery Sports Medicine; ADMIT Internal Medicine Nephrology
PROC: 0Y6H0Z1 Detachment at Right Lower Leg, High, Open Approach (ICD-10-PCS; principal; 2020-08-23 14:00)
DX: A41.9 Sepsis, unspecified organism (principal); R65.21 Severe sepsis with septic shock; N17.9 Acute kidney failure, unspecified; M86.8X7 Other osteomyelitis, ankle and foot; E87.2 Acidosis; I42.9 Cardiomyopathy, unspecified; E11.69 Type 2 diabetes mellitus with other specified complication; E11.621 Type 2 diabetes mellitus with foot ulcer; E11.649 Type 2 diabetes mellitus with hypoglycemia without coma; D53.9 Nutritional anemia, unspecified; E83.51 Hypocalcemia; E87.6 Hypokalemia; I12.9 Hypertensive chronic kidney disease with stage 1 through stage 4 chronic kidney disease, or unspecified chronic kidney disease; N18.32 Chronic kidney disease, stage 3b; E78.5 Hyperlipidemia, unspecified; E11.22 Type 2 diabetes mellitus with diabetic chronic kidney disease; J44.9 Chronic obstructive pulmonary disease, unspecified; E11.21 Type 2 diabetes mellitus with diabetic nephropathy; F17.210 Nicotine dependence, cigarettes, uncomplicated; E11.40 Type 2 diabetes mellitus with diabetic neuropathy, unspecified; Z79.4 Long term (current) use of insulin
CPT/HCPCS: A9284; A9500; J0690; J1100; J1650; J1815; J2543; J2704; J2785; J2916; J3010; J3370; J3480; J7030; J7050; J7060; L1830; Q5106

== ENCOUNTER 2020-10-03 13:19 | Inpatient (IN) | payer MEDICARE, MEDICAID ==
[~2020-10-03] VITALS: Ht 177.8 cm; Wt 78.9 kg
[~2020-10-03 13:19] MED LIST changes: +APRESOLINE 25MG25 MG PO; +ASPIRIN E.C. 8181 MG PO; +CENTRUM SILVER1 TA2 PO; +CIPRO 500MG TA500 MG PO; +COLACE 100100 MG/CAP PO; +CRESTOR20 MG PO; +DOXYCYCLINE HY100 MG PO; +FERROUS SU325 MG/TAB PO; +HCTZ12.5TAB PO; +LEVEMIR100 U/ML SQ; +LOFIBRA134 MG PO; +MAG-OX 400400 MG/TAB PO; +MASON NATURAL2000 IU PO; +MIRALAX PA17 GM/Dose PO; +NOVLOG SQ; +ROXICODONE 55 MG/TAB PO; +STOOL SOFTENER240 M1 PO; +TRESIBA FL100 UNIT/1 SQ; +TYLENOL 500MG500 MG PO; +VOLTAREN GEL 1%1 TU TP; +[UNRECOGNIZED DRUG - OTHER] PO
[2020-10-03] MEDS ORDERED: LIPITOR 40MG TA40 MG PO (16:33)
[2020-10-03] MEDS ORDERED: LOFIBRA54 MG PO (16:34)
[2020-10-03] MEDS ORDERED: MULTIPLE VITAMI1 TA5 PO (16:36)
[2020-10-03] MEDS ORDERED: NEURONTIN100 MG/CAP PO ×2 (16:36→19:35)
[2020-10-03] MEDS ORDERED: PROTONIX 40MG T40 MG PO (16:37)
[2020-10-03] MEDS ORDERED: COLACE 100100 MG/CAP PO ×2 (16:40→19:37)
[2020-10-03 16:42] VITALS: BP 145/65; PULSE 74; TEMP 98.5
--- NOTE | 2020-10-03 17:34 | NUR ---
Admission assessment completed, [facility],alert/oriented, vital signs stable/ afebrile, denies pain at this time, heart RRR/distal pulses are palpable, lungs CTA/ no resp.difficulty noted, I have reviewed his meds/pharmacy/allergies, notified hospitalist of his arrival
[2020-10-03 19:17] VITALS: BP 170/76; PULSE 54; TEMP 97.7
--- NOTE | 2020-10-03 19:17 | NUR ---
Received report from Martin. Seen patient awake in bed. He is alert and oriented. On O2 at 2lpm via NC. With INT on right wrist. Awaiting for orders from Minna LOPEZ. Bedside commode and urinal provided.
--- NOTE | 2020-10-03 19:45 | NUR ---
Vancomycin Initial Dosing Pharmacy Note Ordering provider: Shy Prajapati MD Indication/duration: EMPIRIC Relevant comorbidities: DIABETES, BKA, CKD LABS: SCr 1.4, CrCl ~50, OTHER LABS PENDING Recommendation: VANCOMYCIN 12 MG/KG Loading dose: 1.5 grams Maintenance dose: 1 gram every 12 hours Trough goal: 15-20 ug/mL. TROUGH 10/05 @1930
[2020-10-03 20:21] LABS: ARTERIAL BLD GAS O2 SATURATION 90.4 % (92-100); ARTERIAL BLD GAS TCO2 CT 25.6; ARTERIAL BLOOD GAS BASE EXCESS 0.7 (-2-2); ARTERIAL BLOOD GAS HCO3 24.5 meq/L (22-26); ARTERIAL BLOOD GAS PCO2 35.8 mmHg (35-45); ARTERIAL BLOOD GAS PO2 57.1 mmHg (80-100); ARTERIAL BLOOD GAS pH 7.45 (7.35-7.45)
[2020-10-03 20:32] LABS: BASO % 0.4 % (0.0-2.0); EOS # 0.3 (0.0-0.7); EOS % 3.3 % (0-4.0); GRAN # 5.8 (1.4-6.5); GRAN % 70.7 % (42.2-75.2); HEMATOCRIT 27.5 % (42.0-52.0); HEMOGLOBIN 8.2 g/dl (13.5-18.0); LYMPH # 1.5 (1.2-3.4); LYMPH % 18.6 % (20.0-51.0); MEAN CELL VOLUME 88 fl (80.0-100.0); MEAN CORPUSCULAR HEMOGLOBIN 26 pg (27.0-31.0); MEAN CORPUSCULAR HGB CONC 30 g/dl (33.0-37.0); MEAN PLATELET VOLUME 11.4 fl (7.4-10.4); MONO # 0.5 (0.1-0.6); MONO % 6.6 % (1.7-9.3); PLATELET COUNT 282 K/mm3 (130-400); RED BLOOD COUNT 3.12 M/mm3 (4.20-5.60); REDCELL DISTRIBUTION WIDTH-CV 17.5 % (11.5-14.5)
[2020-10-03 20:33] LABS: CALCIUM 8.4 mg/dL (8.4-10.2); CREATININE, serum 1.44 (0.66-1.25); MAGNESIUM 2.1 mg/dL (1.6-2.3); POTASSIUM 3.5 mmol/L (3.4-5.0)
[2020-10-03 20:45] LABS: TROPONIN-I 0.024 ng/mL (0.000-0.035)
--- NOTE | 2020-10-03 21:15 | NUR ---
This nurse called Minna LOPEZ to inform her of hemoglobin result of 8.2.
[2020-10-03 22:49] VITALS: BP 138/51; PULSE 75; TEMP 98.3
--- NOTE | 2020-10-04 00:36 | NUR ---
This nurse called Pharmacy to asked regarding schedule of Zosyn as it was given late already. He said to continue to give the next dose at 0130H.
[2020-10-04 01:32] LABS: COLLECTION METHOD CLEAN CATCH
[2020-10-04 01:38] LABS: MUCOUS Present /lpf; PH 5 (5-8); SQUAMOUS EPITHELIAL None Seen /hpf; URINE APPEARANCE Hazy; URINE BACTERIA None Seen /hpf; URINE BILIRUBIN Negative (NEGATIVE); URINE BLOOD Negative (NEGATIVE); URINE COLOR Yellow; URINE GLUCOSE 2+ (NEGATIVE); URINE KETONE Negative (NEGATIVE); URINE LEUKOCYTE ESTERASE Negative (NEGATIVE); URINE NITRATE Negative (NEGATIVE); URINE PROTEIN(semi-quant) 2+ (NEGATIVE); URINE UROBILINOGEN Negative (NEGATIVE)
[2020-10-04 02:02] LABS: HEMATOCRIT 25.2 % (42.0-52.0); HEMOGLOBIN 7.5 g/dl (13.5-18.0)
--- NOTE | 2020-10-04 02:04 | NUR ---
Updated Minna PLUMBER MAINTENANCE via phone call regarding latest hemoglobin of 7.5
--- NOTE | 2020-10-04 02:22 | NUR ---
Patient asleep upon entering the room. SPO2 at 92% still at 2lpm NC. RT was in the room as well to do breathing treatment.
[2020-10-04 03:02] VITALS: BP 128/53; PULSE 75; TEMP 98.5
--- NOTE | 2020-10-04 06:09 | NUR ---
Patient had uneventful night. No episodes of vomiting. No bowel movement yet. Latest hemoglobin was 7.5. Still on O2 at 2lpm via NC. Denies pain.
[2020-10-04 06:50] LABS: HEMOGLOBIN 7.3 g/dl (13.5-18.0)
[2020-10-04 06:51] LABS: HEMATOCRIT 23.7 % (42.0-52.0)
--- NOTE | 2020-10-04 07:25 | NUR ---
Patient awake, on the bed during bedside report. on 2L o2 at 93% sat, HR 82. Patient requested for water because his mouth was dry, rodrigo Hurtado nurse gave patient few ice ship to moisturise his mouth. Patient was informed he is currently NPO at this time for GI consult.
[2020-10-04 09:00] VITALS: BP 155/63; PULSE 82; TEMP 98
--- NOTE | 2020-10-04 11:10 | NUR ---
RN called GI consult to Dr Johnson.
--- NOTE | 2020-10-04 11:19 | NUR ---
First visit from the auto service mechanic. No needs right now.
[2020-10-04 12:22] VITALS: BP 154/69; PULSE 85; TEMP 97.9
[2020-10-04 12:55] LABS: IRON,SERUM 14 ug/dL (35-150)
[2020-10-04 13:05] LABS: TOTAL IRON BINDING CAPACITY 238 ug/dL (261-462)
[2020-10-04 13:46] LABS: HEMATOCRIT 25.9 % (42.0-52.0); HEMOGLOBIN 7.7 g/dl (13.5-18.0)
--- NOTE | 2020-10-04 14:47 | NUR ---
MARY met with the patient to discuss discharge plan. The patient has been at [facility] since 09/19, after being discharged from [facility]. The patient states that rehab has been going well at [facility]. OT is recommending that he continues post-acute rehab upon discharge. MARY discussed this with the patient. The patient is interested in going back to [facility] upon discharge. The patient is open to sending referrals to [facility] and [facility] as back up options, if [facility] cannot take him back. The patient's PCP is Dr. Lashae Rader. The patient does not have a DPOA-HC, but he was interested in comleting one while here. AMRY provided the form. The patient designated his sister, Sharyn Mckay (ph#[phone]), and brother, Michael Pak (ph#[phone]). MARY and the patient's RN, Lina, witnessed the patient's signature. The patient was provided with the original and some copies. MARY placed a copy in the patient's chart. MARY contacted and faxed a referral to [facility]. Awaiting screens. MARY contacted and updated the patient's sister, Sharyn. She is agreeable to the above plan.
[2020-10-04 17:15] VITALS: BP 142/65; PULSE 89; TEMP 98.1
--- NOTE | 2020-10-04 19:03 | NUR ---
O2 increased from 2L to 4L, saturation at 93%. patient had a bowel movement today. Dr Mcguire gave verbal order to restart patient's home insulin. Restarted patiet on Insulin aspart - Mid sliding scale ACHS. Patient continue to receive vancomycin and zosyn antibiotics. restarted patient on AHA/ADA DIET. Patient have no question or furthe r concern at this time.
[2020-10-04 19:12] VITALS: BP 148/66; PULSE 93; TEMP 97.9
--- NOTE | 2020-10-04 19:21 | NUR ---
Dr Johnson completed rectal exam on patient. "There was no sign of bleeding, stool color appears normal"
--- NOTE | 2020-10-04 19:35 | NUR ---
Recieved report from [facility]. Seen patient awake, sitting on the side of the bed. On O2 at 4lpm via NC. Denies pain. With IV on right wrist infusing Zosyn. Call light within reach.
[2020-10-04 20:06] LABS: HEMATOCRIT 24.8 % (42.0-52.0); HEMOGLOBIN 7.5 g/dl (13.5-18.0)
[2020-10-04 23:34] VITALS: BP 149/64; PULSE 89; TEMP 98
[2020-10-05 04:25] VITALS: BP 126/61; PULSE 92; TEMP 98.4
[2020-10-05 07:04] LABS: BASO % 0.4 % (0.0-2.0); EOS # 0.3 (0.0-0.7); EOS % 3.3 % (0-4.0); GRAN # 6.4 (1.4-6.5); GRAN % 76.3 % (42.2-75.2); LYMPH # 1.1 (1.2-3.4); LYMPH % 13.1 % (20.0-51.0); MEAN CELL VOLUME 89 fl (80.0-100.0); MEAN CORPUSCULAR HGB CONC 30 g/dl (33.0-37.0); MEAN PLATELET VOLUME 11.8 fl (7.4-10.4); MONO # 0.6 (0.1-0.6); MONO % 6.7 % (1.7-9.3); PLATELET COUNT 270 K/mm3 (130-400); RED BLOOD COUNT 2.85 M/mm3 (4.20-5.60); REDCELL DISTRIBUTION WIDTH-CV 17.6 % (11.5-14.5)
[2020-10-05 07:13] LABS: HEMATOCRIT 25.4 % (42.0-52.0); HEMOGLOBIN 7.6 g/dl (13.5-18.0); MEAN CORPUSCULAR HEMOGLOBIN 27 pg (27.0-31.0)
--- NOTE | 2020-10-05 07:14 | NUR ---
Patient had uneventful night. He is on O2 at 3lpm via NC. SPO2 at 94%. Denies pain.
[2020-10-05 07:26] LABS: CALCIUM 8.1 mg/dL (8.4-10.2); CREATININE, serum 1.59 (0.66-1.25); POTASSIUM 3.2 mmol/L (3.4-5.0)
[2020-10-05 08:34] VITALS: BP 150/72; PULSE 84; TEMP 97.8
[2020-10-05 10:25] LABS: BASO % 0.4 % (0.0-2.0); EOS # 0.2 (0.0-0.7); GRAN # 5.9 (1.4-6.5); GRAN % 77.5 % (42.2-75.2); LYMPH # 0.8 (1.2-3.4); MEAN CELL VOLUME 90 fl (80.0-100.0); MEAN CORPUSCULAR HGB CONC 30 g/dl (33.0-37.0); MEAN PLATELET VOLUME 11.3 fl (7.4-10.4); MONO # 0.6 (0.1-0.6); MONO % 7.7 % (1.7-9.3); PLATELET COUNT 245 K/mm3 (130-400); RED BLOOD COUNT 2.77 M/mm3 (4.20-5.60); REDCELL DISTRIBUTION WIDTH-CV 17.8 % (11.5-14.5)
[2020-10-05 10:26] LABS: HEMATOCRIT 24.8 % (42.0-52.0); HEMOGLOBIN 7.5 g/dl (13.5-18.0); MEAN CORPUSCULAR HEMOGLOBIN 27 pg (27.0-31.0)
[2020-10-05 12:47] VITALS: BP 151/70; PULSE 88; TEMP 97.7
--- NOTE | 2020-10-05 15:46 | NUR ---
(Late Entry) Liquor Tester spoke with Samanta at [facility] on 10/04/20 and was advised that [facility] would be open to accepting patient back once stable and if they had bed availability.
--- NOTE | 2020-10-05 16:17 | NUR ---
Editor Managing Director collaborated with Mone at [facility] who advised she will be on tomorrow. If patient to discharge tomorrow or over the weekend, SW to contact the nurses station to inquire about availability. MARY met with patient who isn't sure if his siblings can provide transportation upon discharge. MARY contacted patient's sister, Shayrn who advised she is willing to provide patient a ride to [place], but she has a truck with a step up. MARY also contacted patient's brother, Michael who advised he has a car and would be available to provide transportation on Friday or Friday if patient is able to discharge. Ayo from [facility] declined referral.
[2020-10-05 16:53] VITALS: BP 134/65; PULSE 80; TEMP 97.9
--- NOTE | 2020-10-05 19:25 | NUR ---
Report received from AMEYA Mills. Pt resting in bed. Denies needs at this time. Call light in reach.
--- NOTE | 2020-10-05 20:22 | NUR ---
Shift assessment complete. Pt lying in bed. Denies pain, reports SOA with exertion. O2 sats 96-97% on 6L NC, weaned pt down to 3L with sats 92-93%. Pt had drop to mid 80s when sitting on side of bed using urinal, sats back up to 90s after lying back down. Heart RRR, lungs CTA, A&Ox4. Right hand INT site CDI. Mild swelling to right hand, pt reports this is chronic. Vancomycin held this evening due to trough of 22.21. Will continue to monitor.
--- NOTE | 2020-10-05 20:55 | NUR ---
PATIENT ALERT AND ORIENTED. DENIES ANY PAIN. Laxis 40mg iv daily was ordered by Dr Hagan. glimepiride 4mg once daily restarting from tomorrow. patient continue to receive vanco and zosyn antibiotics. Patient have no further question or concern at this time.
[2020-10-05 21:00] VITALS: BP 132/63; PULSE 87; TEMP 98.4
--- NOTE | 2020-10-05 23:45 | NUR ---
Aid noticed blood covering pt and bed after entering room for 0000 vitals and notified this RN. Pt was found with IV tubing caught in bedrail and cap disconnected from insertion site. Pt was cleaned up and sheets changed, IV site saved and reinforced. During bed change, pt's O2 sats dropped to low 80s on 3L NC. O2 increased to 5L, sats increased to 90% after several minutes. RT notified, pt switched to HFNC.
[2020-10-05 23:49] VITALS: BP 118/52; PULSE 90; TEMP 98.3
[2020-10-06 04:40] VITALS: BP 134/63; PULSE 89; TEMP 97.8
[2020-10-06 06:44] LABS: MEAN CELL VOLUME 89 fl (80.0-100.0); MEAN CORPUSCULAR HGB CONC 30 g/dl (33.0-37.0); MEAN PLATELET VOLUME 11.9 fl (7.4-10.4); PLATELET COUNT 249 K/mm3 (130-400); RED BLOOD COUNT 2.79 M/mm3 (4.20-5.60); REDCELL DISTRIBUTION WIDTH-CV 17.4 % (11.5-14.5)
[2020-10-06 06:57] LABS: ALBUMIN 2.7 gm/dL (3.5-5.0); BILIRUBIN,TOTAL 0.4 mg/dL (0.0-1.0); CALCIUM 8.4 mg/dL (8.4-10.2); CREATININE, serum 1.89 (0.66-1.25); HEMATOCRIT 24.7 % (42.0-52.0); HEMOGLOBIN 7.4 g/dl (13.5-18.0); MEAN CORPUSCULAR HEMOGLOBIN 27 pg (27.0-31.0); POTASSIUM 3.5 mmol/L (3.4-5.0); TOTAL PROTEIN 6.4 gm/dL (6.4-8.2)
--- NOTE | 2020-10-06 07:14 | NUR ---
Pt resting in bed at this time. O2 sats in low to mid 90s on 4L. No complaints over night.
--- NOTE | 2020-10-06 07:35 | NUR ---
Patient alert and oriented in bed. Patient on 4L at 93% complain of exertion during activities like using urinal. Patient denies any pain.
[2020-10-06 08:51] VITALS: BP 170/71; PULSE 90; TEMP 98
[2020-10-06 12:47] VITALS: BP 138/57; PULSE 83; TEMP 98
[2020-10-06 17:23] VITALS: BP 158/72; PULSE 84; TEMP 98.2
--- NOTE | 2020-10-06 18:56 | NUR ---
DIER CHANGED FROM AHA TO ADA WITH AHA SECONDARY FOR BETTER BLOOD SUGAR CONTROL.
--- NOTE | 2020-10-06 18:58 | NUR ---
Patient get exhausted with minimal exertion.
--- NOTE | 2020-10-06 19:05 | NUR ---
Report received from AMEYA Mills. Pt lying in bed. O2 sats at 95% on 4L. Denies needs at this time. Will continue to monitor.
--- NOTE | 2020-10-06 20:45 | NUR ---
Shift assessment complete. Pt sitting up on edge of bed. O2 sats continue to decrease with pt becoming SOA when sitting up. Sats at 87-89% on 4L at this time. O2 increased to 5L with sats of 89-90%. Heart RRR, lungs CTA, A&Ox4. Bilateral swelling to hands. Denies pain. Will continue to monitor.
[2020-10-06 20:57] VITALS: BP 129/56; PULSE 89; TEMP 98.2
[2020-10-07] VITALS (8 sets, daily range): BP systolic 91–176; BP diastolic 47–88; PULSE 78–92; TEMP 97.5–98.1
--- NOTE | 2020-10-07 06:13 | NUR ---
Remained on 5L O2 for most of night with sats in low 90s when up at bedside and mid to high 90s while lying in bed. At this time, sats at 99% lying down, O2 decreased to 4L. Pt up to dangle on side of bed with sats remaining above 90%. One BM this shift, dark brown in color. No other complaints.
[2020-10-07 07:19] LABS: BASO % 0.4 % (0.0-2.0); EOS % 0.2 % (0-4.0); GRAN # 4.7 (1.4-6.5); GRAN % 84.8 % (42.2-75.2); LYMPH # 0.6 (1.2-3.4); LYMPH % 11.4 % (20.0-51.0); MEAN CELL VOLUME 89 fl (80.0-100.0); MEAN CORPUSCULAR HGB CONC 30 g/dl (33.0-37.0); MEAN PLATELET VOLUME 11.9 fl (7.4-10.4); MONO # 0.2 (0.1-0.6); MONO % 2.7 % (1.7-9.3); PLATELET COUNT 261 K/mm3 (130-400); RED BLOOD COUNT 2.78 M/mm3 (4.20-5.60); REDCELL DISTRIBUTION WIDTH-CV 17.2 % (11.5-14.5)
[2020-10-07 07:28] LABS: HEMATOCRIT 24.8 % (42.0-52.0); HEMOGLOBIN 7.4 g/dl (13.5-18.0); MEAN CORPUSCULAR HEMOGLOBIN 27 pg (27.0-31.0)
[2020-10-07 07:32] LABS: CALCIUM 8.7 mg/dL (8.4-10.2); CREATININE, serum 1.91 (0.66-1.25)
--- NOTE | 2020-10-07 09:18 | NUR ---
Pt awake and alert sitting on side of bed upon entry, talkative, no C/O pain at this time. Shift assessmernts complete, left Pt sitting on side of bed, call light in reach.
--- NOTE | 2020-10-07 20:57 | NUR ---
BP soft. Spoke with Dr. Prajapati-hold all night BP meds. Check in 30 mins and if still low call and will give bolus if needed.
--- NOTE | 2020-10-07 21:45 | NUR ---
Resting in bed. Assessment complete. Left lower lobe clear otherwise diminished throughout. Heart sounds normal. Pulses present throughout. Left lower extremity +1, right BKA, and right upper extremity +1 edema. INT right wrist without complications. Denies pain. Denies needs at this time. Call light in reach.
--- NOTE | 2020-10-07 22:38 | NUR ---
Patient found to be at 72% on 6 liters while sleeping. Patient woke and saturations 94%. Patient reports stuffy nose, possible mouth breathing. Changed to oximask. Will continue to monitor.
--- NOTE | 2020-10-07 22:49 | NUR ---
Patient asleep and on 6 liters oxymask at 94%. Will continue to monitor.
[2020-10-08] VITALS (10 sets, daily range): BP systolic 124–150; BP diastolic 56–96; PULSE 75–88; TEMP 97.3–98.5
--- NOTE | 2020-10-08 00:09 | NUR ---
Resting in bed. Denies needs. Denies pain. Call light in reach.
--- NOTE | 2020-10-08 04:22 | NUR ---
Resting in bed. Denies needs at this time.
--- NOTE | 2020-10-08 06:33 | NUR ---
Patient had uneventful night. Resting in bed this AM. Call light in reach.
[2020-10-08 07:06] LABS: BASO % 0.4 % (0.0-2.0); EOS # 0.3 (0.0-0.7); EOS % 3.6 % (0-4.0); GRAN # 5.9 (1.4-6.5); GRAN % 71.9 % (42.2-75.2); LYMPH # 1.3 (1.2-3.4); LYMPH % 16.5 % (20.0-51.0); MEAN CELL VOLUME 88 fl (80.0-100.0); MEAN CORPUSCULAR HGB CONC 30 g/dl (33.0-37.0); MONO # 0.6 (0.1-0.6); MONO % 7.2 % (1.7-9.3); PLATELET COUNT 274 K/mm3 (130-400); RED BLOOD COUNT 2.65 M/mm3 (4.20-5.60); REDCELL DISTRIBUTION WIDTH-CV 17.3 % (11.5-14.5)
--- NOTE | 2020-10-08 07:06 | NUR ---
Report given to AMEYA Medrano
[2020-10-08 07:20] LABS: CALCIUM 8.3 mg/dL (8.4-10.2); CREATININE, serum 2.13 (0.66-1.25); MAGNESIUM 2.3 mg/dL (1.6-2.3); POTASSIUM 3.7 mmol/L (3.4-5.0)
[2020-10-08 07:38] LABS: HEMATOCRIT 23.4 % (42.0-52.0); HEMOGLOBIN 7.1 g/dl (13.5-18.0); MEAN CORPUSCULAR HEMOGLOBIN 27 pg (27.0-31.0)
--- NOTE | 2020-10-08 08:25 | NUR ---
Pt awake and alert upon entry to room, no C/O pain at this time. Shift assessments complete, left Pt call light in reach, bed in lowest position.
[2020-10-08 12:23] LABS: COLLECTION METHOD CLEAN CATCH
[2020-10-08 12:34] LABS: MUCOUS Present /lpf; PH 7 (5-8); SQUAMOUS EPITHELIAL None Seen /hpf; URINE APPEARANCE Clear; URINE BACTERIA None Seen /hpf; URINE BILIRUBIN Negative (NEGATIVE); URINE BLOOD Negative (NEGATIVE); URINE COLOR Yellow; URINE GLUCOSE 3+ (NEGATIVE); URINE KETONE Negative (NEGATIVE); URINE LEUKOCYTE ESTERASE Negative (NEGATIVE); URINE NITRATE Negative (NEGATIVE); URINE PROTEIN(semi-quant) 1+ (NEGATIVE); URINE UROBILINOGEN Negative (NEGATIVE); URINE WBC 0-2 /hpf
[2020-10-08 12:46] LABS: URINE PROTEIN:CREAT RATIO 1.78 (0.00-0.14)
--- NOTE | 2020-10-08 18:36 | NUR ---
Pt resting in the room, pt had transfusion of LPRC completed this afternoon, no issues noted during the transfusion. no C/O pain throughout the day. VS remain stable.
--- NOTE | 2020-10-08 20:00 | NUR ---
Report received, assumed care for night shift supervisor. Assessment complete. VS stable A&Ox3. Denies lightheadedness/pain/nausea/shortness of breath. O2 via High flow NC @6.5L/M. LCTAB. INT to right wrist flushes without difficulty. Plan of care discussed for this shift to include HS meds/calling for questions/concerns. Verbalizes understanding. Call light in reach. Will monitor.
[2020-10-09 02:56] VITALS: BP 103/52; PULSE 86
--- NOTE | 2020-10-09 02:57 | NUR ---
Called stating he had urine to be dumped from urinal. Noted to be in the high 80s for pulse ox 85-88% on high flow NC @6.5L. Verified with 2nd machine. O2 increased to 8L/HFNC with O2 saturation increasing to 92%. Denies feeling more short of breath. Other VS WNL. Call light in reach. Will monitor.
--- NOTE | 2020-10-09 06:11 | NUR ---
Rested well this shift. Had a large soft formed BM this AM. States he was told that he shouldnt have anything to eat or drink after midnight for a procedure. Nothing certain in orders but did remain NPO after midnight. O2 needs increased over night-currently on 8L/HFNC with O2 saturation 91-92%. Call light in reach. Will monitor.
[2020-10-09 07:33] LABS: BASO % 0.3 % (0.0-2.0); EOS # 0.5 (0.0-0.7); EOS % 5.5 % (0-4.0); GRAN # 6.3 (1.4-6.5); GRAN % 72.4 % (42.2-75.2); LYMPH # 1.2 (1.2-3.4); LYMPH % 13.5 % (20.0-51.0); MEAN CELL VOLUME 88 fl (80.0-100.0); MEAN CORPUSCULAR HGB CONC 31 g/dl (33.0-37.0); MEAN PLATELET VOLUME 11.8 fl (7.4-10.4); MONO # 0.7 (0.1-0.6); MONO % 7.7 % (1.7-9.3); PLATELET COUNT 308 K/mm3 (130-400); RED BLOOD COUNT 3.22 M/mm3 (4.20-5.60); REDCELL DISTRIBUTION WIDTH-CV 16.7 % (11.5-14.5)
[2020-10-09 07:46] LABS: CALCIUM 8.6 mg/dL (8.4-10.2); CREATININE, serum 2.54 (0.66-1.25); POTASSIUM 3.6 mmol/L (3.4-5.0)
[2020-10-09 07:51] VITALS: BP 142/69; PULSE 81; TEMP 97.5
[2020-10-09 07:52] LABS: HEMATOCRIT 28.2 % (42.0-52.0); HEMOGLOBIN 8.7 g/dl (13.5-18.0); MEAN CORPUSCULAR HEMOGLOBIN 27 pg (27.0-31.0)
--- NOTE | 2020-10-09 08:30 | NUR ---
Assessment completed, alert/oriented, vital signs stable, denies pain this time, labs still pending for this morning, heart RRR/distal pulses are palpable, no resp.difficulty noted at rest bbut still getting SOA easily with exertion/ oxygen requirements are up and down a little, he is sitting at the edge of the bed having breakfast, meds given, denies other needs at this time
[2020-10-09 12:17] VITALS: BP 136/57; PULSE 79; TEMP 97.4
--- NOTE | 2020-10-09 16:13 | NUR ---
Patient is now requiring 6-8 liters of oxygen. Investor Relations Director updated Samanta at [facility] who advised if they have bed availability, they are able to accept patient back. MARY contacted Santo at [facility] and faxed updates incase on day of discharge, SB is full. Santo advised her team will review updates to determine if they can accept of not.
[2020-10-09 16:17] VITALS: BP 135/58; PULSE 80; TEMP 97.5
--- NOTE | 2020-10-09 20:00 | NUR ---
Report received, assumed care for shift supervisor. Assessment complete. VS stable. A&Ox3. Denies pain/nausea. Short of breath with activity. O2 @6L/HFNC. Tele showing normal SR. Plan of care discussed for this shift to include HS meds/calling for questions/concerns. Verbalizes understanding. Call light in reach. Will monitor.
--- NOTE | 2020-10-09 20:30 | NUR ---
PCT walked into room and patient was sitting on floor. States he was using the urinal and "sat down" on the floor because he dropped the urinal. States "I did not fall, I just sat down." Denies any pain/hitting head. VS completed. No visible injuries noted. horticultural services supervisor and KIESHA Jim notified with no new orders but to monitor.
[2020-10-09 20:33] VITALS: BP 165/85; PULSE 102; TEMP 98
[2020-10-09 21:30] VITALS: BP 132/68
--- NOTE | 2020-10-09 21:30 | NUR ---
Blood pressure rechecked. Previous reading was post fall. New blood pressure 132/68. Requesting to receive only one tab of hydralazine. Given per request. Will monitor BP through night.
[2020-10-10] VITALS (8 sets, daily range): BP systolic 116–156; BP diastolic 54–73; PULSE 80–90; TEMP 97.1–97.8
--- NOTE | 2020-10-10 01:30 | NUR ---
Noted to have elevated BP-refused taking second hydralazine at HS. Blood pressure rechecked at this time-116/58-manually.
--- NOTE | 2020-10-10 06:37 | NUR ---
Rested well this shift. O2 sat remained 92% on 6L/HFNC. Denied pain/nausea. Tele showed NSR. Denies questions/concerns. Call light in reach. Will monitor.
--- NOTE | 2020-10-10 08:49 | NUR ---
PATIENT IS CALM IN THE ROOM SITTED AT THE BEDSIDE TAKING BREAKFAST,DUE MEDICATION GIVEN,DENIES PAIN.NO CONCERNS AT THIS TIME.
[2020-10-10 10:16] LABS: BASO % 0.3 % (0.0-2.0); EOS # 0.1 (0.0-0.7); EOS % 0.7 % (0-4.0); GRAN # 7.6 (1.4-6.5); GRAN % 84.2 % (42.2-75.2); LYMPH # 0.9 (1.2-3.4); LYMPH % 9.7 % (20.0-51.0); MEAN CELL VOLUME 86 fl (80.0-100.0); MEAN CORPUSCULAR HGB CONC 31 g/dl (33.0-37.0); MEAN PLATELET VOLUME 11.2 fl (7.4-10.4); MONO # 0.4 (0.1-0.6); MONO % 4.5 % (1.7-9.3); PLATELET COUNT 307 K/mm3 (130-400); RED BLOOD COUNT 3.23 M/mm3 (4.20-5.60); REDCELL DISTRIBUTION WIDTH-CV 16.4 % (11.5-14.5)
[2020-10-10 10:20] LABS: HEMATOCRIT 27.9 % (42.0-52.0); HEMOGLOBIN 8.5 g/dl (13.5-18.0); MEAN CORPUSCULAR HEMOGLOBIN 26 pg (27.0-31.0)
--- NOTE | 2020-10-10 10:20 | NUR ---
Initial visit; Patient thanked Tire Center Supervisor for stopping by and states that he would like Tire Center Supervisor to keep him in her prayers and he will keep her in his prayers. Tire Center Supervisor thanked patient.
[2020-10-10 10:28] LABS: ALBUMIN 2.8 gm/dL (3.5-5.0); CALCIUM 8.7 mg/dL (8.4-10.2); CREATININE, serum 1.96 (0.66-1.25); PHOSPHOROUS 3.2 mg/dL (2.5-4.5); POTASSIUM 3.6 mmol/L (3.4-5.0)
--- NOTE | 2020-10-10 15:23 | NUR ---
Phlebotomy Manager collaborated with Hospitalist who would like referral sent to [facility]. MARY Cespedes faxed referral to Chelsi at [facility]. MARY updated Samanta at [facility] and will continue to follow.
--- NOTE | 2020-10-10 18:13 | NUR ---
PATIENT HAD A CALM DAY,ALERT AND ORIENTED,IV LINE CDI,ON OXYGEN THERAPY DESATURATES WHEN EATING,VITALS ACCEPTABLE.NO CONCERNS AT THIS TIME.
--- NOTE | 2020-10-10 19:45 | NUR ---
resting in bed, bedside shift report received from AMEYA Schneider
--- NOTE | 2020-10-10 20:45 | NUR ---
sitting up on side of bed using urinal, then full assessment completed, see interventions for further info, denies needs at this time
--- NOTE | 2020-10-10 22:40 | NUR ---
appears to be sleeping, in bed and resp quiet and easy
--- NOTE | 2020-10-10 23:55 | NUR ---
awake and sitting up on side of bed, denies pain or needs
[2020-10-11] VITALS (8 sets, daily range): BP systolic 134–165; BP diastolic 58–80; PULSE 75–92; TEMP 97.5–98.3
--- NOTE | 2020-10-11 02:38 | NUR ---
appears to be sleeping
--- NOTE | 2020-10-11 06:13 | NUR ---
awake and rquesting coffee which was provided, denies other needs
--- NOTE | 2020-10-11 06:40 | NUR ---
bedside shift repor given to Shreyas Lemos and Alejandra RN
--- NOTE | 2020-10-11 07:29 | NUR ---
PT REFUSED BREATHING TX
--- NOTE | 2020-10-11 08:00 | NUR ---
PT DENIES PAIN/DISCOMFORT, PT AOX4, PT VITALS STABLE, BP HIGHER SO SCHEDULED HYDRALAZINE GIVEN. MEDICATIONS GIVEN, ASSESSMENT PERFORMED, INSULIN GIVEN WITH BREAKFAST, FRESH ICE WATER BROUGHT IN, NO OTHER NEEDS.
[2020-10-11 09:11] LABS: MEAN CELL VOLUME 87 fl (80.0-100.0); MEAN CORPUSCULAR HGB CONC 30 g/dl (33.0-37.0); MEAN PLATELET VOLUME 11.5 fl (7.4-10.4); PLATELET COUNT 367 K/mm3 (130-400); RED BLOOD COUNT 3.49 M/mm3 (4.20-5.60); REDCELL DISTRIBUTION WIDTH-CV 16.7 % (11.5-14.5)
[2020-10-11 09:19] LABS: HEMATOCRIT 30.5 % (42.0-52.0); HEMOGLOBIN 9.2 g/dl (13.5-18.0); MEAN CORPUSCULAR HEMOGLOBIN 26 pg (27.0-31.0)
[2020-10-11 09:22] LABS: CREATININE, serum 1.91 (0.66-1.25); POTASSIUM 3.9 mmol/L (3.4-5.0)
--- NOTE | 2020-10-11 10:53 | NUR ---
PATIENT WAS RECEIVED FAIR SITTED AT THE EDGE OF THE BE,ON OXYGEN THERAPY.NO NEEDA AT THIS TIME
--- NOTE | 2020-10-11 12:32 | NUR ---
DIGITAL STRATEGY MANAGER NOTIFIED OF PT REFUSING DIALYSIS CATH PLACEMENT TODAY BUT WOULD LIKE IT TOMORROW.
--- NOTE | 2020-10-11 16:29 | NUR ---
Belly Dump Driver collaborated with Chelsi at [facility] who advised patient would meet criteria once bed is available. MARY received a phone call from Dr. James who advised he will start patient on dialysis as early as tomorrow. Dr. James advised patient may not need LTACH once dialysis starts as patient may not continue to have increased oxygen needs. MARY contacted Santo at [facility] to provide update. MARY will continue to follow.
--- NOTE | 2020-10-11 17:10 | NUR ---
PATIENT HAS HAD A CALM DAY,ON HIGH FLOW OXYGEN AT 8L DEVELOPS SOB ON EXERTION DEEPS TO 80S WHEN TALKING OR EATING.HE DENIES PAIN.HE IS SCHEDULED FOR CVC PLACEMENT TOMORROW CONSENT OBTAINED ATTACHED ON HIS CHART.NO CONCERNS AT THIS TIME.
--- NOTE | 2020-10-11 22:00 | NUR ---
Resting in bed. Assessment complete. Lungs coarse throughout. On oxygen at 8 liters. Denies shortness of breath. Heart sounds normal. Bowels active x4. Pulses present throughout. No edema noted. INT right wrist free of complications. Denies pain. Denies needs at this time. Call light in reach.
[2020-10-12] VITALS (9 sets, daily range): BP systolic 109–178; BP diastolic 53–102; PULSE 76–90; TEMP 97.4–98.4
--- NOTE | 2020-10-12 00:56 | NUR ---
Resting in bed. Denies needs. Call light in reach.
--- NOTE | 2020-10-12 06:33 | NUR ---
Patient had uneventful night. Resting in bed this AM. Call light in reach.
[2020-10-12 06:50] LABS: MEAN CELL VOLUME 88 fl (80.0-100.0); MEAN CORPUSCULAR HGB CONC 31 g/dl (33.0-37.0); MEAN PLATELET VOLUME 11.7 fl (7.4-10.4); PLATELET COUNT 400 K/mm3 (130-400); RED BLOOD COUNT 3.33 M/mm3 (4.20-5.60)
[2020-10-12 06:56] LABS: BILIRUBIN,TOTAL 0.4 mg/dL (0.0-1.0); CREATININE, serum 1.94 (0.66-1.25); MAGNESIUM 2.4 mg/dL (1.6-2.3); POTASSIUM 3.5 mmol/L (3.4-5.0); TOTAL PROTEIN 6.7 gm/dL (6.4-8.2)
[2020-10-12 07:03] LABS: HEMATOCRIT 29.4 % (42.0-52.0); MEAN CORPUSCULAR HEMOGLOBIN 27 pg (27.0-31.0)
--- NOTE | 2020-10-12 07:09 | NUR ---
Report given to AMEYA Lemos
--- NOTE | 2020-10-12 07:38 | NUR ---
PT IN BED, APPEARS NERVOUS ABOUT PROCEDURE BUT WANTS TO GO FORWARD WITH IT AT THIS TIME, PT AOX4, PT SATTING WELL ON PULSE OX, DENIES PAIN OR DISCOMFORT, IV FLUSHED AND PATENT, URINAL EMPTIED, 825ML OUT. ASSESSMENT PERFORMED, NO OTHER NEEDS.
--- NOTE | 2020-10-12 07:48 | NUR ---
PT TAKEN DOWN FOR PROCEDURE
--- NOTE | 2020-10-12 09:15 | NUR ---
PT RETURNED FROM PROCEDURE, RIJ CATHETER IN PLACE NO DRAINAGE, VITALS STABLE.
--- NOTE | 2020-10-12 09:21 | NUR ---
pt returned to floor, hooked up to vitals cart, [facility] site cdi w/o drainage. pt aox4, denies pain, will get morning medications for pt.
--- NOTE | 2020-10-12 09:23 | NUR ---
ordered new breakfast tray and lunch and dinner per pt request.
--- NOTE | 2020-10-12 10:00 | NUR ---
pt eating breakfast and sob. pt satting 85-89%. oxygen slowly titrated up to 10L and oxygen fluctuating from 88-90% at this time. adina Marcos notified. dialysis planned for 1300. RT called but unable to get answer at this time.
--- NOTE | 2020-10-12 12:29 | NUR ---
PT TAKEN TO DIALYSIS VIA WHEELCHAIR
--- NOTE | 2020-10-12 15:40 | NUR ---
ENTERED ROOM AFTER PT GETTING BACK FROM DIALYSIS. OXYGEN ON 4.5L NC. PLACED PULSE OXIMETER ON PT, PT SATTING 79%. RT CALLED, O2 GRADUALLY TURNED UP TO 11L WHERE PT SATTING 93%.
--- NOTE | 2020-10-12 15:55 | NUR ---
Limousine And Hearse Upholsterer faxed updates to [facility] and [facility]. Santo at [facility] advised they are able to consider accepting patient once his oxygen needs decrease and he is no longer on the high flow. MARY advised Santo that patient may be ready for discharge this weekend. Santo reported that MARY can call the referral line (her cell) over the weekend to provide updates. MARY will continue to follow.
--- NOTE | 2020-10-12 18:50 | NUR ---
PT UPSET ABOUT MOVING ROOM BECAUSE HE DIDN'T THINK HE HAD HIS BELONGINGS, SHOWED HIM BELONGINGS AND MOVED ITEMS AROUND IN ROOM UNTIL HE WAS CONTENT. PT AOX4, DIALYSIS TODAY, PT ON 11L NC. NO OTHER NEEDS AT THIS TIME.
--- NOTE | 2020-10-12 21:40 | NUR ---
Resting in bed. Assessment complete. Lungs clear. Patient has dyspnea with using urinal. At 87% after returning to bed. Increased to 12 liters to maintain saturations. Heart sounds normal. Bowels active x4. Pulses present throughout. Left lower extremity edema +2. INT right wrist flushed without complications. Denies pain. Dialysis cath site CDI. Denies needs. Call light in reach. Attempted to contact Minna LOPEZ regarding increasing oxygen needs. No answer, will update.
[2020-10-12 21:47] LABS: HEPATITIS B SURFACE ANTIBODY <2.0 (()); HEPATITIS B SURFACE ANTIGEN Negative (Negative); HEPATITIS C VIRUS ANTIBODY Negative (Negative)
[2020-10-12 23:14] LABS: ARTERIAL BLD GAS O2 SATURATION 93.3 % (92-100); ARTERIAL BLD GAS TCO2 CT 33.9; ARTERIAL BLOOD GAS BASE EXCESS 7.2 (-2-2); ARTERIAL BLOOD GAS HCO3 32.4 meq/L (22-26); ARTERIAL BLOOD GAS pH 7.44 (7.35-7.45)
--- NOTE | 2020-10-12 23:49 | NUR ---
Patient to be started on bipap. Patient agrees to plan of care.
--- NOTE | 2020-10-13 00:04 | NUR ---
Patient on bipap. Tolerating well. Will monitor.
--- NOTE | 2020-10-13 02:00 | NUR ---
Patient off bipap at this time. Back to 10 liters via oxymask. Tolerating well.
[2020-10-13 05:35] VITALS: BP 137/61; PULSE 81; TEMP 97.6
--- NOTE | 2020-10-13 06:17 | NUR ---
Patient required bipap during night for increased oxygen needs. On oxymask this AM. Maintaining saturations. Requested miralax. Provided to patient. Otherwise uneventful night. Resting in bed this AM. Call light in reach.
[2020-10-13 07:11] LABS: MEAN CELL VOLUME 87 fl (80.0-100.0); MEAN CORPUSCULAR HGB CONC 30 g/dl (33.0-37.0); MEAN PLATELET VOLUME 11.2 fl (7.4-10.4); PLATELET COUNT 358 K/mm3 (130-400); RED BLOOD COUNT 3.47 M/mm3 (4.20-5.60); REDCELL DISTRIBUTION WIDTH-CV 17.1 % (11.5-14.5)
[2020-10-13 07:20] LABS: HEMATOCRIT 30.2 % (42.0-52.0); HEMOGLOBIN 9.1 g/dl (13.5-18.0); MEAN CORPUSCULAR HEMOGLOBIN 26 pg (27.0-31.0)
[2020-10-13 07:26] LABS: ALBUMIN 2.9 gm/dL (3.5-5.0); CALCIUM 8.9 mg/dL (8.4-10.2); CREATININE, serum 1.73 (0.66-1.25); PHOSPHOROUS 3.2 mg/dL (2.5-4.5); POTASSIUM 4.2 mmol/L (3.4-5.0)
--- NOTE | 2020-10-13 07:39 | NUR ---
Report given to AMEYA Medrano
[2020-10-13 07:59] VITALS: BP 147/80; PULSE 78; TEMP 97.4
--- NOTE | 2020-10-13 08:56 | NUR ---
Pt awake and alert upon entry, in bed. No C/O pain at this time. Shift assessments complete, left Pt in bed lowest position, call light in reach.
[2020-10-13 09:13] LABS: ANISOCYTOSIS 1+; BAND 1 % (0-10); HYPOCHROMIA 1+; LYMPHOCYTE 5 % (20.0-51.0); NEUTROPHILS 89 % (42.0-75.2); PLATELET ESTIMATE NORMAL (NORMAL); POLYCHROMASIA 1+
[2020-10-13 11:07] LABS: INR 1.3 (0.8-3.0); PROTHROMBIN TIME 14.1 SECONDS (9.7-12.8)
[2020-10-13 11:10] LABS: PARTIAL THROMBOPLASTIN TIME 36.3 SECONDS (26.0-37.0)
[2020-10-13 16:00] VITALS: BP 147/95; PULSE 84
[2020-10-13 19:28] VITALS: BP 101/40; PULSE 80; TEMP 97.4
--- NOTE | 2020-10-13 19:48 | NUR ---
Resting in bed. Assessment complete. Left upper lobe diminished otherwise clear. Patient on 11 liters at 91%. Heart sounds normal. Bowels active x4. Pulses present throughout. Left lower ext edema +1. Bilateral upper extremity +1. Patient right wrist IV for heparin gtt pulled out. Will restart. Denies pain. Denies needs at this time. Held hytrin due to lower systolic. Will monitor.
--- NOTE | 2020-10-13 21:32 | NUR ---
Per Dr. James patient going to dialysis at 0800. Hold all AM BP medications.
[2020-10-13 23:20] VITALS: BP 134/68; PULSE 77; TEMP 98.5
--- NOTE | 2020-10-13 23:49 | NUR ---
Resting in bed. Denies needs. Call light in reach.
--- NOTE | 2020-10-14 01:58 | NUR ---
Patient resting in bed. Denies needs. Lab contacted to draw hepXa.
--- NOTE | 2020-10-14 02:35 | NUR ---
Pt awake at this time and agreeable to taking Duoneb nebulizer for the first time in 24 hrs. Pt still refuses BiPAP stating that he's doing fine and doesn't want to screw anything up.
[2020-10-14 03:23] VITALS: BP 129/59; PULSE 72; TEMP 98
[2020-10-14 03:33] LABS: ALBUMIN 2.8 gm/dL (3.5-5.0); CALCIUM 8.9 mg/dL (8.4-10.2); CREATININE, serum 1.62 (0.66-1.25); PHOSPHOROUS 3.5 mg/dL (2.5-4.5); POTASSIUM 3.6 mmol/L (3.4-5.0)
--- NOTE | 2020-10-14 05:58 | NUR ---
Patient had uneventful night. Continues on heparin gtt during night. Resting in bed this AM. Given miralax to aide with BM. Call light in reach.
--- NOTE | 2020-10-14 06:56 | NUR ---
Report given to AMEYA Lemos
--- NOTE | 2020-10-14 07:24 | NUR ---
PT AOX4, APPEARS VERY PALE, VITALS TAKEN, PULSE OX FLUCTUATING BETWEEN 89%-93%. PT REPORTED CONSTIPATION SO DIRECTOR OF FAMILY SERVICE CENTER GAVE MIRALAX IN COFFEE, BOWEL SOUNDS HYPOACTIVE, PT APPEARS IN POOR SPIRITS, REPORTED THAT PT SIGNIFICANT OTHER ATTEMPTED SUICIDE YESTERDAY. PT REFUSING DIALYSIS, SAYING "I NEED A BREAK, KELLIE BEEN DOING IT EVERYDAY". AFTER ATTEMPTS TO EDUCATED ON IMP OF DIALYSIS PT STILL REFUSING. WILL CALL DIALYSIS WHEN RN ARRIVES. PT DENIES PAIN OR DISCOMFORT AT THIS TIME.
[2020-10-14 07:32] VITALS: BP 144/79; PULSE 78; TEMP 97.5
--- NOTE | 2020-10-14 08:35 | NUR ---
ATTEMPTED TO GET PT TO DO DIALYSIS AGAIN, STATED HE WOULD BE OK DOING IT IN THE AFTERNOON IF THERE WAS A TIME AVAILABLE
--- NOTE | 2020-10-14 11:12 | NUR ---
Sent clinical updates to [facility]
--- NOTE | 2020-10-14 11:30 | NUR ---
PT HAS BEEN SLEEPING IN ROOM SINCE AM. OXYGEN IN NOSE.
--- NOTE | 2020-10-14 12:20 | NUR ---
BS 48, PT GIVEN JUICE, PEANUT BUTTER AND CRACKERS.
[2020-10-14 12:33] VITALS: BP 136/67; PULSE 80; TEMP 98.3
--- NOTE | 2020-10-14 12:40 | NUR ---
PT BS 55 WITH RECHECK. PT LUNCH TRAY ARRIVED, WILL RECHECK IN ANOTHER 15-30MIN.
--- NOTE | 2020-10-14 13:14 | NUR ---
PT BP CAME UP TO 79 AFTER LUNCH, PT ATE 100% OF LUNCH. PT CURRENTLY BRUSHING TEETH AND SHAVING IN ROOM.
[2020-10-14 16:40] LABS: MEAN CELL VOLUME 86 fl (80.0-100.0); MEAN CORPUSCULAR HGB CONC 31 g/dl (33.0-37.0); MEAN PLATELET VOLUME 11.7 fl (7.4-10.4); PLATELET COUNT 351 K/mm3 (130-400); RED BLOOD COUNT 3.57 M/mm3 (4.20-5.60); REDCELL DISTRIBUTION WIDTH-CV 18.1 % (11.5-14.5)
[2020-10-14 16:42] LABS: HEMATOCRIT 30.7 % (42.0-52.0); HEMOGLOBIN 9.6 g/dl (13.5-18.0); MEAN CORPUSCULAR HEMOGLOBIN 27 pg (27.0-31.0)
[2020-10-14 17:11] VITALS: BP 151/70; PULSE 85; TEMP 97.6
--- NOTE | 2020-10-14 17:24 | NUR ---
PT PLEASANT, AOX4, REFUSED DIALYSIS TODAY, WILL GO TO IT TOMORROW, PT REQUESTED 2100 [address] EARLY, IT WAS GIVEN WITH DINNER, PT DOWN TO 5L NC SATTING 92%. USING URINAL IN ROOM, HAD LARGE BM TODAY. NO OTHER NEEDS AT THIS TIME.
--- NOTE | 2020-10-14 18:33 | NUR ---
PT REPORTING GABAPENTIN IS NOT AFFECTING NERVE PAIN WELL IT USED TO. REPORTED NEED FOR ROXICODONE
[2020-10-14 20:12] VITALS: BP 119/50; PULSE 79; TEMP 98.3
[2020-10-15 00:03] VITALS: BP 151/64; PULSE 83; TEMP 98
--- NOTE | 2020-10-15 02:07 | NUR ---
Patient has been resting comfortably. He is not sleeping. Denies pain and nausea. Samlivane he refused his novolog because he was worried it was too much and his blood sugar would drop. Now he had the [employer] recheck it and it was higher so he wanted the dose he was supposed to have at bedtime. He had his bipap on for a few hours but than wanted the oxymask on. He stated he couldn't sleep with the bipap. No other changes at this time. Call light within reach.
[2020-10-15 04:33] VITALS: BP 135/58; PULSE 76; TEMP 97.9
[2020-10-15 06:00] LABS: MEAN CELL VOLUME 87 fl (80.0-100.0); MEAN CORPUSCULAR HGB CONC 31 g/dl (33.0-37.0); MEAN PLATELET VOLUME 11.6 fl (7.4-10.4); PLATELET COUNT 362 K/mm3 (130-400); RED BLOOD COUNT 3.41 M/mm3 (4.20-5.60); REDCELL DISTRIBUTION WIDTH-CV 17.9 % (11.5-14.5)
[2020-10-15 06:05] LABS: HEMATOCRIT 29.5 % (42.0-52.0); MEAN CORPUSCULAR HEMOGLOBIN 26 pg (27.0-31.0)
--- NOTE | 2020-10-15 06:07 | NUR ---
Patient did not sleep much during the night. He is worried about his glucose. Explained that he should have had a snack at bedtime but he was worried that would cause his glucose to be high. Denies nausea or pain. No other changes at this time. Call light within reach.
[2020-10-15 08:25] LABS: CALCIUM 8.7 mg/dL (8.4-10.2); CREATININE, serum 1.83 (0.66-1.25); POTASSIUM 3.8 mmol/L (3.4-5.0)
--- NOTE | 2020-10-15 08:51 | NUR ---
PT TAKEN DOWN TO DIALYSIS W/O BREAKFAST, BS RECHECKED AND IT WAS 78. TOAST W/ BUTTER BEING BROUGHT OVER FOR PT.
--- NOTE | 2020-10-15 08:59 | NUR ---
PT PLEASANT, AOX4, APPEARS PALE, BS STABLE, PT DROWSY DUE TO NOT GETTING GOOD SLEEP LAST NIGHT. ASSESSMENT PERFORMED, MEDICATIONS HELD UNTIL AFTER DIALYSIS.
[2020-10-15 12:57] VITALS: BP 158/75; PULSE 81; TEMP 97.5
--- NOTE | 2020-10-15 13:55 | NUR ---
PT HEPXA WITHIN GOAL RANGE. PT TEARFUL IN ROOM, HE STATES "I DON'T THINK I'M DOING TOO GOOD". ATTEMPTED TO CONSOLE PT, PT CALMED DOWN. PT SATTING 96% ON 10L, TURNED DOWN TO 7L NC. WILL CONTINUE TO WEAN DOWN. PT AT 10L FROM POST DIALYSIS O2 SAT SITTING AT 85% RT AND DR. CHAPIN AWARE.
[2020-10-15 16:57] VITALS: BP 120/59; PULSE 83; TEMP 98.1
--- NOTE | 2020-10-15 18:01 | NUR ---
PT HAVING HYPOXIC EPISODES WHERE CHECKED AND HE IS SATTING 85%. PT CURRENTLY ON 8L NC SITTING AT 90%. DIALYSIS TODAY, WILL NOT HAVE IT AGAIN UNTIL FRIDAY, PT REQUESTED 15UNITS INSULIN AT DINNER INSTEAD OF THE 16 UNITS HE WOULD HAVE GOTTEN WITH THE SCALE. PT WORRIED ABOUT BS DROPPING TOO LOW DURING THE NIGHT. PT DISTRESSED EARLIER ABOUT STATE OF HEALTH, PT HAVING FREQUENT OUTPUT, LARGE BM TODAY, BP MEDS CHANGED, NO OTHER NEEDS AT THIS TIME.
[2020-10-15 20:07] VITALS: BP 124/54; PULSE 72; TEMP 97.8
--- NOTE | 2020-10-15 21:52 | NUR ---
Pt agrees to a nebulizer right now; states he does not want woken up for them. He agrees to taking one in the morning and one in the evening at this time.
[2020-10-15 23:50] VITALS: BP 140/57; PULSE 74; TEMP 97.6
[2020-10-16 04:15] VITALS: BP 116/61; PULSE 80; TEMP 98
--- NOTE | 2020-10-16 06:30 | NUR ---
Patient did not sleep much during the night. He refused his levemir at bedtime. Discussed how the novolog and levemir worked together. Explained he needs to eat at bedtime with the levemir so his glucose does not drop in the morning. He agreed to eat a sandwich at bedtime but still did not take the medication. Sometime after 2330 his heparin drip was placed on standby. His morning hep xa level was low. Gave bolus and increased the heparin drip by 2.5 mls, per protocol. Patient denies that he stopped the drip. Not sure how the IV was placed in standby. No complaints of pain or nausea througouht the night. He asked for miralax during the night. No other changes at this time. Call light within reach. Patient also reafused to wear the bipap during the night.
--- NOTE | 2020-10-16 08:30 | NUR ---
PT REQUESTED 8UNITS OF INSULIN INSTEAD OF FULL AMOUNT. LONG ACTING GIVEN WITH OTHER MEDIATIONS. VITALS TAKEN AND REVIEWED, URINAL EMPTIED, PT REFUSED BIPAP DURING THE NIGHT, PT ASSESSMENT PERFORMED, CALL LIGHT WITHIN REACH, NO OTHER NEEDS AT THIS TIME.
[2020-10-16 08:46] VITALS: BP 143/73; PULSE 81; TEMP 97.5
[2020-10-16 11:10] VITALS: BP 154/67; PULSE 74; TEMP 97.4
--- NOTE | 2020-10-16 14:44 | NUR ---
pt requested I call [facility] to cancel pt appt for prosthetic on 10/18/20. I cancelled appt and gave number to pt to call to reschedule. Discussing with pt, he is worried about many different things outside of the hospital like getting his power turned off and cable cancelled. pt also worried about long time girlfriend of 20yrs with her mental health issues, pt upset he can't be with her rn. pt currently on 4L NC. no other needs at this time.
--- NOTE | 2020-10-16 14:49 | NUR ---
X Ray Consultant faxed clinical updates to [facility] and [facility]. MARY spoke with JAY JAY Coyle at [facility] who advised they are likely able to accept, however would want patient on under 5 liters of oxygen. Jonna also expressed concern about patient refusing long acting insulin and dialysis. MARY addressed this with KIESHA Mcgregor. Meche advised that patient did not want his long acting insulin last night as he was worried about getting low. Per nursing notes, patient took his long acting insulin this morning. Also in nursing notes, it was reported that the day patient declined dialysis, his significant other had attempted suicide. Meche advised that patient has been getting dialysis since. MARY contacted Jonna with these updates. Jonna states as long as oxygen is below 5 liters, they can likely accept patient.
[2020-10-16 15:24] VITALS: BP 140/64; PULSE 76; TEMP 97.6
--- NOTE | 2020-10-16 18:14 | NUR ---
PT AOX4, CURRENTLY ON 4L NC, PT EATING ALL OF MEALS, PT HAVING INC BS DURING THE DAY, HAD BM, GOOD OUTPUT, ON HEPARIN DRIP AT 17ML/HR. NO OTHER NEEDS. REPORTS SOME PAIN IN R BKA BUT DENIES NEED FOR MEDICATION AT THIS TIME.
[2020-10-16 21:09] VITALS: BP 138/61; PULSE 75; TEMP 97.5
[2020-10-16 23:37] VITALS: BP 117/46; PULSE 75; TEMP 97.5
[2020-10-17 05:17] VITALS: BP 140/58; PULSE 77; TEMP 97.7
[2020-10-17 07:22] VITALS: BP 150/70; PULSE 81; TEMP 97.8
[2020-10-17 07:47] LABS: CALCIUM 8.5 mg/dL (8.4-10.2); CREATININE, serum 1.93 (0.66-1.25); POTASSIUM 3.1 mmol/L (3.4-5.0)
[2020-10-17 07:49] LABS: MEAN CELL VOLUME 87 fl (80.0-100.0); MEAN CORPUSCULAR HGB CONC 31 g/dl (33.0-37.0); MEAN PLATELET VOLUME 12.4 fl (7.4-10.4); PLATELET COUNT 329 K/mm3 (130-400); RED BLOOD COUNT 3.58 M/mm3 (4.20-5.60)
[2020-10-17 07:52] LABS: HEMATOCRIT 31.3 % (42.0-52.0); HEMOGLOBIN 9.7 g/dl (13.5-18.0); MEAN CORPUSCULAR HEMOGLOBIN 27 pg (27.0-31.0)
--- NOTE | 2020-10-17 09:00 | NUR ---
PATIENT GOING DOWN TO RADIOLOGY FOR CT AND THEN WILL GO DIRECTLY TO DIALYSIS. HEP GTT OFF.
[2020-10-17 09:19] LABS: BAND 2 % (0-10); EOSINOPHIL 5 % (0-4); LYMPHOCYTE 21 % (20.0-51.0); METAMYELOCYTE 2 % (0-0); NEUTROPHILS 64 % (42.0-75.2); OVALOCYTES 1+
[2020-10-17 09:22] LABS: PLATELET ESTIMATE NORMAL (NORMAL)
--- NOTE | 2020-10-17 10:05 | NUR ---
The patient is now down 3L of oxygen. [employer] faxed updates to JAY JAY Coyle at [facility]. SW attempted to contact Jonna regarding updates, left message.
[2020-10-17] MEDS ORDERED: FERROUS SU325 MG/TAB PO (10:17)
[2020-10-17] MEDS ORDERED: COREG 3.123.125 MG/T PO (10:18)
[2020-10-17] MEDS ORDERED: LASIX 80MG TABL80 MG PO (10:21)
--- NOTE | 2020-10-17 11:10 | NUR ---
Ice House Supervisor contacted JAY JAY Coyle with [facility]. Jonna would like a covid test done on the patient and will accept a rapid. She will review the updates then inform this SW regarding being able to accept this day. SW collaborated the above informatation with the PA.
--- NOTE | 2020-10-17 11:50 | NUR ---
PATIENT NOW BACK IN ROOM FROM DIALYSIS. SEE HEP GTT DC ORDERS. HOSPITALIST AT BEDSIDE ROUNDING.
--- NOTE | 2020-10-17 12:41 | NUR ---
Jonna denise DON with [facility] reports they can accept the patient this day as long as the rapid covid test results as negative. SW collaborated the above information with the team.
--- NOTE | 2020-10-17 12:48 | NUR ---
RAPID COVID SWAB SENT TO LAB FOR DISCHARGE PLACEMENT.
[2020-10-17 12:57] VITALS: BP 127/66; PULSE 85
--- NOTE | 2020-10-17 15:27 | NUR ---
The patient's covid test was positive. However, he tested positive in August and is out of isolation. Jonna from [facility] reports they will be able to take the patient tomorrow 10/18, at or after 11:00 am. SW collaborated the above information with the team.
[2020-10-17 15:49] VITALS: BP 128/50; PULSE 84; TEMP 98.2
[2020-10-17 20:40] VITALS: BP 127/51; PULSE 79; TEMP 97.8
[2020-10-18] VITALS: BP 121/60; PULSE 79; TEMP 97.6
--- NOTE | 2020-10-18 00:46 | NUR ---
Patient alert and oriented. Patient denies any pain or discomfort. Denies SOB or dyspnea while at rest. Patient on oxygen 2L via NC. Breathing even and unlabored. Scheduled meds given per order. Patient requested 8 units of Novolog instead of full amount. Call light within reach. Patient denies any needs at this time.
[2020-10-18 04:00] VITALS: BP 115/69; PULSE 77; TEMP 98
--- NOTE | 2020-10-18 06:39 | NUR ---
BS 36 at 06:12 am this morning. Offered 4 oz of juice, 1 full cup of coffee with sugar inside, and crackers. Rechecked BS after 15 min, BS 69 at 06:30 am. Patient sitting up and eating crackers and drinking coffee at this time. Patient alert and oriented x4. Patient reports a little bit of headache at this time. Encouraged patient to eat and drink. Call light within reach. Will give report to day shift nurse.
--- NOTE | 2020-10-18 06:42 | NUR ---
Called DR Rois and notified BS result from this morning.
--- NOTE | 2020-10-18 07:00 | NUR ---
Report received from AMEYA Zavala. PT in bed resting, sitting at side of bed, blood sugarsl ow this am but pt states he is feeling fine now, will continue to monitor.
[2020-10-18 07:44] VITALS: BP 151/63; PULSE 77; TEMP 98
[2020-10-18] MEDS ORDERED: NOVLOG SQ (09:56)
[2020-10-18] MEDS ORDERED: LEVEMIR FLEX100 U/ML SQ (09:56)
[2020-10-18] MEDS ORDERED: PREDNISONE10 MG PO (10:03)
--- NOTE | 2020-10-18 10:23 | NUR ---
The patient is to tentatively discharge today, 10/18 to [facility] for post acute rehab. Jonna from [facility] reports they will sampler pickup the patient at 11:30 am for transport. The team and patient were in agreeance. Cook Manager met with the patient to present the IM form. The patient verbalized understanding and gave this SW permission to sign the form. A copy was provided to the patient and the original was placed in the chart. SW contacted the patient's sister, Sharyn to provide update. She was in agreeance with the patient's discharge plan. There are no additional needs at this time.
[2020-10-18 11:29] VITALS: BP 151/63; PULSE 77; TEMP 98
--- NOTE | 2020-10-18 11:37 | NUR ---
Assessment charted. INT to LW. PT anticipating dishcarge today. Refusing insulin regimen ths am since WBC very low. R BKA well approximated and healing well. Will conitnue to monitor.
--- NOTE | 2020-10-18 11:38 | NUR ---
Pt ready to discharge. Will leave in our gown and brief as no clothes. Will call report to [facility]. [facility] personnel here to transport pt in own wheelchair with own 02 tank. INT dc'd, tip intact. PT will with all belongings. Criteria met for transfer.
== END 2020-10-18 11:51 | DRG 177 ==
LOC: MEDICAL 13:19
PROVIDERS: Hospitalist; Internal Medicine Gastroenterology; Internal Medicine Nephrology; Nurse Practitioner Family; Physician Assistant; ADMIT Student in an Organized Health Care Education/Training Program
PROC: 0JH60XZ Insertion of Tunneled Vascular Access Device into Chest Subcutaneous Tissue and Fascia, Open Approach (ICD-10-PCS; 2020-10-12)
PROC: 06H033Z Insertion of Infusion Device into Inferior Vena Cava, Percutaneous Approach (ICD-10-PCS; 2020-10-12)
PROC: 5A09457 Assistance with Respiratory Ventilation, 24-96 Consecutive Hours, Continuous Positive Airway Pressure (ICD-10-PCS; principal; 2020-10-15)
DX: U07.1 COVID-19 (principal); J12.82 Pneumonia due to coronavirus disease 2019; J96.01 Acute respiratory failure with hypoxia; I50.23 Acute on chronic systolic (congestive) heart failure; I50.22 Chronic systolic (congestive) heart failure; N17.9 Acute kidney failure, unspecified; J44.0 Chronic obstructive pulmonary disease with (acute) lower respiratory infection; J44.1 Chronic obstructive pulmonary disease with (acute) exacerbation; I11.0 Hypertensive heart disease with heart failure; E11.22 Type 2 diabetes mellitus with diabetic chronic kidney disease; E11.319 Type 2 diabetes mellitus with unspecified diabetic retinopathy without macular edema; N18.9 Chronic kidney disease, unspecified; Z66 Do not resuscitate; I08.0 Rheumatic disorders of both mitral and aortic valves; E87.6 Hypokalemia; E83.51 Hypocalcemia; D63.1 Anemia in chronic kidney disease; N40.0 Benign prostatic hyperplasia without lower urinary tract symptoms; D72.829 Elevated white blood cell count, unspecified; E55.9 Vitamin D deficiency, unspecified; E78.5 Hyperlipidemia, unspecified; Z79.891 Long term (current) use of opiate analgesic; Z89.511 Acquired absence of right leg below knee; Z87.891 Personal history of nicotine dependence
CPT/HCPCS: 99223-AI; 99232-AI; 99233-AI; 99239; C1769; C9113; G0378; J1644; J1815; J1940; J2250; J2543; J2916; J2920; J2930; J3010; J3370; J7030; J7050; J7512; P9016; Q5105; Q5106; Q9967

== ENCOUNTER 2020-10-26 14:14 | Emergency (ER) | payer MEDICARE, MEDICAID ==
[~2020-10-26] VITALS: Ht 177.8 cm; Wt 79.5 kg
[~2020-10-26 14:14] MED LIST changes: +COREG 3.123.125 MG/T PO; +LASIX 80MG TABL80 MG PO; +LEVEMIR FLEX100 U/ML SQ; +LIPITOR 40MG TA40 MG PO; +LOFIBRA54 MG PO; +MULTIPLE VITAMI1 TA5 PO; +NEURONTIN100 MG/CAP PO; +PREDNISONE10 MG PO; +PROTONIX 40MG T40 MG PO
[2020-10-26 14:52] LABS: BASO # 0.1 (0.0-0.2); BASO % 0.5 % (0.0-2.0); EOS # 0.1 (0.0-0.7); EOS % 0.7 % (0-4.0); GRAN # 9.1 (1.4-6.5); GRAN % 84.8 % (42.2-75.2); HEMOGLOBIN 11.4 g/dl (13.5-18.0); LYMPH # 0.8 (1.2-3.4); LYMPH % 7.2 % (20.0-51.0); MEAN CELL VOLUME 89 fl (80.0-100.0); MEAN CORPUSCULAR HEMOGLOBIN 28 pg (27.0-31.0); MEAN CORPUSCULAR HGB CONC 31 g/dl (33.0-37.0); MEAN PLATELET VOLUME 11.5 fl (7.4-10.4); MONO # 0.7 (0.1-0.6); MONO % 6.1 % (1.7-9.3); PLATELET COUNT 218 K/mm3 (130-400); RED BLOOD COUNT 4.12 M/mm3 (4.20-5.60); REDCELL DISTRIBUTION WIDTH-CV 21.7 % (11.5-14.5)
[2020-10-26 14:53] LABS: HEMATOCRIT 36.8 % (42.0-52.0)
[2020-10-26 15:04] LABS: ALANINE AMINOTRANSFERASE 19 U/L (4-49); ALBUMIN 3.1 gm/dL (3.5-5.0); ALKALINE PHOSPHATASE 39 U/L (50-136); ANION GAP 2 mmol/L (7-16); AST,SGOT 32 U/L (15-37); BILIRUBIN,TOTAL 0.6 mg/dL (0.0-1.0); BLOOD UREA NITROGEN 22 mg/dL (9-20); CALCIUM 8.3 mg/dL (8.4-10.2); CARBON DIOXIDE 29 mmol/L (22-30); CHLORIDE 104 mmol/L (98-107); CREATININE, serum 1.33 (0.66-1.25); GLUCOSE 244 mg/dL (74-106); POTASSIUM 4.2 mmol/L (3.4-5.0); SODIUM 135 mmol/L (137-145); TOTAL PROTEIN 6.2 gm/dL (6.4-8.2)
[2020-10-26 15:05] LABS: ACETAMINOPHEN < 10 ug/mL (10-30); ALCOHOL(ethanol),MEDICAL < 10 mg/dL; SALICYLATE < 1.0 mg/dL
[2020-10-26 15:19] LABS: TROPONIN-I 0.039 ng/mL (0.000-0.035)
[2020-10-26 19:56] VITALS: TEMP 97.9
[2020-10-26 21:35] VITALS: BP 105/52; PULSE 80
== END 2020-10-26 22:45 | disposition home or self-care (01) ==
LOC: COL.ER 14:14
PROVIDERS: Emergency Medicine
DX: R45.851 Suicidal ideations (principal); E11.9 Type 2 diabetes mellitus without complications; Z86.16 Personal history of COVID-19; Z87.891 Personal history of nicotine dependence; Z79.4 Long term (current) use of insulin; Z79.52 Long term (current) use of systemic steroids; Z79.82 Long term (current) use of aspirin
CPT/HCPCS: J1815

== ENCOUNTER → 2020-11-20 | Outpatient (CLI) | payer MEDICARE, MEDICAID ==
[~2020-11-20] VITALS: Ht 177.8 cm; Wt 81.0 kg
[~2020-11-20] MED LIST changes: +LASIX 80MG TABL80 MG; +NOVOLOG 100U100 U/M1 SQ
[2020-11-20 10:28] VITALS: BP 105/67; PULSE 71
[2020-11-20 10:45] VITALS: BP 126/82; PULSE 79
== END ==
LOC: COL.RAD 09:44
DX: N18.6 End stage renal disease (principal); Z99.2 Dependence on renal dialysis